=== PATIENT | male | born 1965 | race African-American/Black ===

== ENCOUNTER 2017-05-07 10:02 | Inpatient (IN) | payer OTHER ==
[2017-05-07 10:31] VITALS: BMI 27.1
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
[2017-05-07] MEDS ORDERED: hydrOXYzine PAMOATE 50 MG CAPSULE (FP) PO PRN (14:25)
[2017-05-07] MEDS ORDERED: IBUPROFEN 400 MG TABLET (FP) PO PRN (14:25)
[2017-05-07] MEDS ORDERED: ACETAMINOPHEN 325 MG TABLET (FP) PO PRN (14:25)
[2017-05-07] MEDS ORDERED: chlordiazePOXIDE HCL 25 MG CAPSULE PO PRN (14:25)
[2017-05-07] MEDS ORDERED: guaiFENesin/D-METHORPHAN HB 10 ML UNIT-DOSE CUPS PO PRN (14:25)
[2017-05-07] MEDS ORDERED: MAGNESIUM HYDROX 2400MG/30ML ORAL SUSPENSION 30 ML CUP PO PRN (14:25)
[2017-05-07] MEDS ORDERED: MAGNESIUM CITRATE 300 ML BOTTLE PO PRN (14:25)
[2017-05-07] MEDS ORDERED: P-EPHED 60MG/TRIPROLIDI 2.5MG TABLET PO PRN (14:25)
[2017-05-07] MEDS ORDERED: chlordiazePOXIDE HCL 25 MG CAPSULE PO ONE (15:00)
[2017-05-07 17:10] LABS: URINE APPEARANCE CLEAR; URINE BILIRUBIN NEGATIVE (NEGATIVE); URINE BLOOD NEGATIVE (NEGATIVE); URINE COLOR YELLOW; URINE GLUCOSE (UA) NEGATIVE (NEGATIVE); URINE KETONE NEGATIVE (NEGATIVE); URINE LEUK ESTERASE NEGATIVE (NEGATIVE); URINE NITRITE NEGATIVE (NEGATIVE); URINE PROTEIN NEGATIVE (NEGATIVE); URINE UROBILINOGEN NEGATIVE mg/dL (0.2-1.0)
[2017-05-07] MEDS: chlordiazePOXIDE HCL 25 MG CAPSULE PO SCH ×2 (17:20→22:12)
[2017-05-07] MEDS: THIAMINE HCL 100 MG TABLET (FP) PO SCH (22:12)
[2017-05-07] MEDS: BACITRACIN 0.9 GM PACKET TP SCH (22:12)
[2017-05-07] MEDS: diphenhydrAMINE HCL 50 MG CAPSULE PO PRN (22:13)
[2017-05-07] MEDS: MAG HYDROX/AL HYDROX/SIMETH 30 ML UNIT-DOSE CUP PO PRN (22:13)
[2017-05-08] MEDS: chlordiazePOXIDE HCL 25 MG CAPSULE PO SCH ×4 (05:08→22:16)
[2017-05-08] MEDS: LOPERAMIDE HCL 2 MG CAPSULE PO PRN ×2 (08:48→19:46)
[2017-05-08 09:37] LABS: HIV 1 & 2 AB NEGATIVE; HIV 1 AGp24 NEGATIVE
[2017-05-08 09:41] LABS: MCH 28.2 pg (25.7-33.7); MCHC 32.3 g/dl (32.0-35.9); MEAN CELL VOLUME 87.4 fl (80-96); MEAN PLT VOLUME 8.4 fl (7.5-11.1); PLATELET COUNT 233 K/MM3 (134-434); RDW 14.8 % (11.9-15.9); WHITE BLOOD COUNT 4.4 K/mm3 (4.0-10.0)
[2017-05-08 09:48] LABS: ALBUMIN 3.7 g/dl (3.4-5.0); ANION GAP 7 (8-16); BILIRUBIN,TOTAL 0.3 mg/dL (0.2-1.0); CALCIUM 8.3 mg/dL (8.5-10.1); CO2 27 mmol/L (21-32); CREATININE 0.8 mg/dL (0.7-1.3); GLUCOSE,RANDOM 107 mg/dL (74-106); SGOT/AST 19 U/L (15-37); SGPT/ALT 25 U/L (12-78); TOT PROT 7.7 g/dl (6.4-8.2)
[2017-05-08 09:49] LABS: ALK PHOS 97 U/L (45-117)
[2017-05-08] MEDS: BACITRACIN 0.9 GM PACKET TP SCH ×2 (10:28→22:15)
[2017-05-08] MEDS: PRENATAL VITAMINS W/ FOLIC ACID TABLET (FP) PO SCH (10:28)
--- NOTE | 2017-05-08 11:51 | PN ---
S CIWA - CIWA Score Nausea/Vomitin Muscle Tremors: 3 Anxiety: 3 Agitation: 2 Paroxysmal Sweats: 3 Orientation: 0-Oriented Tacttile Disturbances: 2-Mild Itch/Numbness/Burn Auditory Disturbances: 0-None Visual Disturbances: 0-None Headache: 0-None Present CIWA-Ar Total Score: 15 S Progress Note (SOAP) Subjective: sweats, shakes ,,cramps Objective: 05/08/17 11:49 Vital Signs Temperature 96.8 F L 05/08/17 10:24 Pulse Rate 69 05/08/17 10:24 Respiratory Rate 18 05/08/17 10:24 Blood Pressure 131/78 05/08/17 10:24 O2 Sat by Pulse Oximetry (%) Laboratory Tests 05/07/17 05/07/17 05/08/17 12:40 15:00 06:00 WBC 4.4 RBC 4.00 Hgb 11.3 L Hct 35.0 L MCV 87.4 MCH 28.2 MCHC 32.3 RDW 14.8 Plt Count 233 MPV 8.4 Sodium Potassium Chloride Carbon Dioxide Anion Gap BUN Creatinine Creat Clearance w eGFR Random Glucose Calcium Total Bilirubin AST ALT Alkaline Phosphatase Total Protein Albumin Urine Color Yellow Urine Appearance Clear Urine pH 5.0 D Ur Specific [place] 1.025 Urine Protein Negative Urine Glucose (UA) Negative Urine Ketones Negative Urine Blood Negative Urine Nitrite Negative Urine Bilirubin Negative Urine Urobilinogen Negative Ur Leukocyte Esterase Negative HIV 1&2 Antibody Screen Negative HIV P24 Antigen Negative 05/08/17 06:00 WBC RBC Hgb Hct MCV MCH MCHC RDW Plt Count MPV Sodium 141 Potassium 4.0 Chloride 107 Carbon Dioxide 27 Anion Gap 7 L BUN 20 H Creatinine 0.8 Creat Clearance w eGFR > 60 Random Glucose 107 H Calcium 8.3 L Total Bilirubin 0.3 D AST 19 D ALT 25 D Alkaline Phosphatase 97 Total Protein 7.7 Albumin 3.7 Urine Color Urine Appearance Urine pH Ur Specific [place] Urine Protein Urine Glucose (UA) Urine Ketones Urine Blood Urine Nitrite Urine Bilirubin Urine Urobilinogen Ur Leukocyte Esterase HIV 1&2 Antibody Screen HIV P24 Antigen pt aox3 in nad ambulating Assessment: 05/08/17 11:49 withdrawal sx's t.pedis cramps i toes 05/08/17 11:50 Plan: cont. detox increase fluids tinactin bid flexeril 10mg tid
--- NOTE | 2017-05-08 12:57 | EKG ---
Test Reason : Blood Pressure : / mmHG Vent. Rate : 054 BPM Atrial Rate : 054 BPM P-R Int : 132 ms QRS Dur : 110 ms QT Int : 460 ms P-R-T Axes : 075 072 039 degrees QTc Int : [address] ELEVATION, CONSIDER EARLY REPOLARIZATION OTHERWISE NORMAL ECG NO PREVIOUS ECGS AVAILABLE Confirmed by MD JACIEL, YVONNE ([id number]) on 05/08/2017 12:56:32 PM Referred By: Confirmed By:YVONNE GRISSOM MD
[2017-05-08] MEDS: THIAMINE HCL 100 MG TABLET (FP) PO SCH (22:15)
[2017-05-08] MEDS: diphenhydrAMINE HCL 50 MG CAPSULE PO PRN (22:16)
[2017-05-09] MEDS: chlordiazePOXIDE HCL 25 MG CAPSULE PO SCH ×2 (05:36→10:37)
[2017-05-09] MEDS: MENTHOL/PHENOL 1 EACH UD MM PRN (05:37)
[2017-05-09] MEDS ORDERED: CYCLOBENZAPRINE HCL 10 MG TABLET (FP) PO PRN (10:31)
[2017-05-09] MEDS: PRENATAL VITAMINS W/ FOLIC ACID TABLET (FP) PO SCH (10:34)
[2017-05-09] MEDS: BACITRACIN 0.9 GM PACKET TP SCH ×2 (10:35→22:37)
[2017-05-09] MEDS: AMMONIUM LACTATE 12% LOTION 225 GM BOTTLE TP SCH (13:04)
[2017-05-09] MEDS: TOLNAFTATE 1% CREAM 15 GM TUBE TP SCH ×2 (13:05→22:37)
--- NOTE | 2017-05-09 14:19 | PN ---
S CIWA - CIWA Score Nausea/Vomitin Muscle Tremors: None Anxiety: 4-Mod. Anxious/Guarded Agitation: 2 Paroxysmal Sweats: 3 Orientation: 0-Oriented Tacttile Disturbances: 0-None Auditory Disturbances: 2-Mild Harshness/Frighten Visual Disturbances: 3-Moderate Sensitivity Headache: 0-None Present CIWA-Ar Total Score: 16 S Progress Note (SOAP) Subjective: Interrupted sleep, Stomach Cramping, Body Aches, H/A, Diarrhea, Sweating. Objective: PT. A & O X 3. NO ACUTE DISTRESS. PT. DENIES CHEST PAIN. 05/09/17 14:17 Vital Signs Temperature 97.9 F 05/09/17 10:11 Pulse Rate 75 05/09/17 10:11 Respiratory Rate 18 05/09/17 10:11 Blood Pressure 137/73 05/09/17 10:11 O2 Sat by Pulse Oximetry (%) Laboratory Tests 05/07/17 05/07/17 05/08/17 12:40 15:00 06:00 WBC 4.4 RBC 4.00 Hgb 11.3 L Hct 35.0 L MCV 87.4 MCH 28.2 MCHC 32.3 RDW 14.8 Plt Count 233 MPV 8.4 Sodium Potassium Chloride Carbon Dioxide Anion Gap BUN Creatinine Creat Clearance w eGFR Random Glucose Calcium Total Bilirubin AST ALT Alkaline Phosphatase Total Protein Albumin Urine Color Yellow Urine Appearance Clear Urine pH 5.0 D Ur Specific [place] 1.025 Urine Protein Negative Urine Glucose (UA) Negative Urine Ketones Negative Urine Blood Negative Urine Nitrite Negative Urine Bilirubin Negative Urine Urobilinogen Negative Ur Leukocyte Esterase Negative RPR Titer HIV 1&2 Antibody Screen Negative HIV P24 Antigen Negative 05/08/17 05/08/17 06:00 06:00 WBC RBC Hgb Hct MCV MCH MCHC RDW Plt Count MPV Sodium 141 Potassium 4.0 Chloride 107 Carbon Dioxide 27 Anion Gap 7 L BUN 20 H Creatinine 0.8 Creat Clearance w eGFR > 60 Random Glucose 107 H Calcium 8.3 L Total Bilirubin 0.3 D AST 19 D ALT 25 D Alkaline Phosphatase 97 Total Protein 7.7 Albumin 3.7 Urine Color Urine Appearance Urine pH Ur Specific [place] Urine Protein Urine Glucose (UA) Urine Ketones Urine Blood Urine Nitrite Urine Bilirubin Urine Urobilinogen Ur Leukocyte Esterase RPR Titer Nonreactive HIV 1&2 Antibody Screen HIV P24 Antigen LABS NOTED. Assessment: 05/09/17 14:18 WITHDRAWAL SYMPTOMS. Plan: CONTINUE DETOX. INCREASE PO FLUID INTAKE. PRN FLEXERIL FOR BODY ACHES / MUSCLE SPASMS.
[2017-05-09] MEDS: chlordiazePOXIDE 5 MG CAPSULE PO SCH ×2 (17:23→22:37)
[2017-05-09] MEDS: THIAMINE HCL 100 MG TABLET (FP) PO SCH (22:37)
[2017-05-09] MEDS: MAG HYDROX/AL HYDROX/SIMETH 30 ML UNIT-DOSE CUP PO PRN (22:38)
[2017-05-10] MEDS: chlordiazePOXIDE 5 MG CAPSULE PO SCH ×2 (05:28→10:34)
[2017-05-10] MEDS: MENTHOL/PHENOL 1 EACH UD MM PRN (05:29)
[2017-05-10] MEDS: LOPERAMIDE HCL 2 MG CAPSULE PO PRN (05:29)
[2017-05-10] MEDS: TOLNAFTATE 1% CREAM 15 GM TUBE TP SCH ×2 (10:32→22:17)
[2017-05-10] MEDS: BACITRACIN 0.9 GM PACKET TP SCH ×2 (10:32→22:16)
[2017-05-10] MEDS: PRENATAL VITAMINS W/ FOLIC ACID TABLET (FP) PO SCH (10:33)
[2017-05-10] MEDS: AMMONIUM LACTATE 12% LOTION 225 GM BOTTLE TP SCH (10:34)
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
[2017-05-10] MEDS: chlordiazePOXIDE HCL 10 MG CAPSULE PO SCH ×2 (17:05→22:17)
[2017-05-10] MEDS: THIAMINE HCL 100 MG TABLET (FP) PO SCH (22:16)
[2017-05-10] MEDS: diphenhydrAMINE HCL 50 MG CAPSULE PO PRN (22:17)
[2017-05-11] MEDS: chlordiazePOXIDE HCL 10 MG CAPSULE PO SCH (06:04)
[2017-05-11 06:07] VITALS: BP 140/78; PULSE 78; TEMP 97
[2017-05-11] MEDS ORDERED: BACITRACIN 0.9 GM PACKET TP ONE (09:45)
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
== END 2017-05-11 09:32 | disposition home or self-care (01) | DRG 775 ==
LOC: YASAS 10:02 → Y3N 12:08
PROVIDERS: ADMIT Internal Medicine; ATTEND Internal Medicine
PROC: HZ2ZZZZ Detoxification Services for Substance Abuse Treatment (ICD-10-PCS; principal; 2017-05-07)
PROC: 8E09XY8 Suture Removal from Head and Neck Region (ICD-10-PCS; 2017-05-07)
DX: F13.230 Sedative, hypnotic or anxiolytic dependence with withdrawal, uncomplicated (principal); F10.230 Alcohol dependence with withdrawal, uncomplicated; F12.20 Cannabis dependence, uncomplicated; B35.3 Tinea pedis; R25.2 Cramp and spasm; Z87.898 Personal history of other specified conditions; Z93.0 Tracheostomy status
CPT/HCPCS: 36415; 80053; 81003; 85027; 86593; 87389; 93005; 93010

== ENCOUNTER 2018-04-09 10:22 | Inpatient (IN) | payer OTHER ==
[2018-04-09 10:53] VITALS: BMI 27.1
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
[2018-04-09] MEDS ORDERED: MENTHOL/PHENOL 1 EACH UD MM PRN (11:51)
[2018-04-09] MEDS ORDERED: ACETAMINOPHEN 325 MG TABLET (FP) PO PRN (11:51)
[2018-04-09] MEDS ORDERED: chlordiazePOXIDE HCL 25 MG CAPSULE PO PRN (11:51)
[2018-04-09] MEDS ORDERED: guaiFENesin/D-METHORPHAN HB 10 ML UNIT-DOSE CUPS PO PRN (11:51)
[2018-04-09] MEDS ORDERED: MAGNESIUM HYDROX 2400MG/30ML ORAL SUSPENSION 30 ML CUP PO PRN (11:51)
[2018-04-09] MEDS ORDERED: IBUPROFEN 400 MG TABLET (FP) PO PRN (11:51)
[2018-04-09] MEDS ORDERED: P-EPHED 60MG/TRIPROLIDI 2.5MG TABLET PO PRN (11:51)
[2018-04-09] MEDS ORDERED: MAGNESIUM CITRATE 300 ML BOTTLE PO PRN (11:51)
[2018-04-09] MEDS ORDERED: cloNIDine HCL 0.1 MG TABLET PO ONE (13:35)
[2018-04-09] MEDS: RANITIDINE HCL 150 MG TABLET (FP) PO SCH (13:37)
[2018-04-09] MEDS: chlordiazePOXIDE HCL 25 MG CAPSULE PO SCH ×2 (17:18→22:12)
[2018-04-09] MEDS: THIAMINE HCL 100 MG TABLET (FP) PO SCH (22:11)
[2018-04-09] MEDS: MELATONIN 5 MG TABLETS PO PRN (22:11)
[2018-04-10] MEDS: chlordiazePOXIDE HCL 25 MG CAPSULE PO SCH ×4 (05:54→22:30)
[2018-04-10] MEDS: MAG HYDROX/AL HYDROX/SIMETH 30 ML UNIT-DOSE CUP PO PRN (05:55)
[2018-04-10 10:14] LABS: HEMATOCRIT 36.8 % (35.4-49); HEMOGLOBIN 12.3 GM/dL (11.7-16.9); MCH 30.2 pg (25.7-33.7); MCHC 33.3 g/dl (32.0-35.9); MEAN CELL VOLUME 90.5 fl (80-96); MEAN PLT VOLUME 8.3 fl (7.5-11.1); PLATELET COUNT 249 K/MM3 (134-434); RBC 4.07 M/mm3 (4.00-5.60); RDW 15.3 % (11.9-15.9); WHITE BLOOD COUNT 4.5 K/mm3 (4.0-10.0)
[2018-04-10] MEDS: RANITIDINE HCL 150 MG TABLET (FP) PO SCH (10:34)
[2018-04-10] MEDS: PRENATAL VITAMINS W/ FOLIC ACID TABLET (FP) PO SCH (10:34)
[2018-04-10 10:43] LABS: URINE APPEARANCE TURBID; URINE BILIRUBIN NEGATIVE (<2.0 mg/dL); URINE COLOR AMBER; URINE GLUCOSE (UA) NEGATIVE (NEGATIVE); URINE KETONE NEGATIVE (NEGATIVE); URINE LEUK ESTERASE NEGATIVE (NEGATIVE); URINE NITRITE NEGATIVE (NEGATIVE); URINE PROTEIN NEGATIVE (NEGATIVE)
[2018-04-10 10:46] LABS: URINE BACTERIA RARE /hpf (NONE SEEN); URINE MUCUS FEW
[2018-04-10 10:50] LABS: ALK PHOS 92 U/L (45-117); CHLORIDE 107 mmol/L (98-107); POTASSIUM 3.8 mmol/L (3.5-5.1); SGPT/ALT 40 U/L (12-78); SODIUM 140 mmol/L (136-145)
[2018-04-10 10:55] LABS: ALBUMIN 4.2 g/dl (3.4-5.0); ANION GAP 7 (8-16); BILIRUBIN,TOTAL 1.2 mg/dL (0.2-1.0); BLOOD UREA NITROGEN 19 mg/dL (7-18); CALCIUM 8.9 mg/dL (8.5-10.1); CO2 26 mmol/L (21-32); GLUCOSE,RANDOM 124 mg/dL (74-106); SGOT/AST 40 U/L (15-37); TOT PROT 8.1 g/dl (6.4-8.2)
[2018-04-10] MEDS: LOPERAMIDE HCL 2 MG CAPSULE PO PRN (13:46)
[2018-04-10] MEDS ORDERED: CYCLOBENZAPRINE HCL 10 MG TABLET (FP) PO PRN (16:21)
--- NOTE | 2018-04-10 17:50 | PN ---
[facility] CIWA - CIWA Score Nausea/Vomitin-No Nausea/No Vomiting Muscle Tremors: 4-Moderate,w/Arms Extend Anxiety: 3 Agitation: 3 Paroxysmal Sweats: 3 Orientation: 0-Oriented Tacttile Disturbances: 2-Mild Itch/Numbness/Burn Auditory Disturbances: 2-Mild Harshness/Frighten Visual Disturbances: 0-None Headache: 0-None Present CIWA-Ar Total Score: 17 S Progress Note (SOAP) Subjective: Interrupted Sleep, Tremors, Diarrhea, Sweating, Body Aches. Objective: PATIENT A & O X 3, OBSERVED AMBULATING ON UNIT. NO ACUTE DISTRESS. 04/10/18 17:48 Vital Signs Temperature 96.7 F L 04/10/18 14:01 Pulse Rate 55 L 04/10/18 14:01 Respiratory Rate 18 04/10/18 14:01 Blood Pressure 151/79 04/10/18 14:01 O2 Sat by Pulse Oximetry (%) Laboratory Tests 04/09/18 04/10/18 04/10/18 12:00 05:30 05:30 WBC 4.5 RBC 4.07 Hgb 12.3 Hct 36.8 MCV 90.5 MCH 30.2 MCHC 33.3 RDW 15.3 Plt Count 249 MPV 8.3 Sodium 140 Potassium 3.8 Chloride 107 Carbon Dioxide 26 Anion Gap 7 L BUN 19 H Creatinine 1.0 Creat Clearance w eGFR > 60 Random Glucose 124 H Calcium 8.9 Total Bilirubin 1.2 H AST 40 H D ALT 40 D Alkaline Phosphatase 92 Total Protein 8.1 Albumin 4.2 Urine Color Urine Appearance Urine pH Ur Specific [place] Urine Protein Urine Glucose (UA) Urine Ketones Urine Blood Urine Nitrite Urine Bilirubin Urine Urobilinogen Ur Leukocyte Esterase Urine WBC (Auto) Urine RBC (Auto) Urine Bacteria Urine Mucus RPR Titer HIV 1&2 Antibody Screen Negative HIV P24 Antigen Negative 04/10/18 04/10/18 05:30 05:50 WBC RBC Hgb Hct MCV MCH MCHC RDW Plt Count MPV Sodium Potassium Chloride Carbon Dioxide Anion Gap BUN Creatinine Creat Clearance w eGFR Random Glucose Calcium Total Bilirubin AST ALT Alkaline Phosphatase Total Protein Albumin Urine Color [place] Urine Appearance Turbid Urine pH 5.0 Ur Specific [place] 1.023 Urine Protein Negative Urine Glucose (UA) Negative Urine Ketones Negative Urine Blood 1+ H Urine Nitrite Negative Urine Bilirubin Negative Urine Urobilinogen 2.0 Ur Leukocyte Esterase Negative Urine WBC (Auto) 2 Urine RBC (Auto) 4 Urine Bacteria Rare Urine Mucus Few RPR Titer Nonreactive HIV 1&2 Antibody Screen HIV P24 Antigen LABS NOTED. Assessment: 04/10/18 17:48 WITHDRAWAL SYMPTOMS. Plan: CONTINUE DETOX. INCREASE DAILY PO FLUID INTAKE. PRN FLEXERIL FOR BODY ACHES / MUSCLE SPASMS.
[2018-04-10] MEDS: THIAMINE HCL 100 MG TABLET (FP) PO SCH (22:30)
[2018-04-10] MEDS: hydrOXYzine PAMOATE 25 MG CAPSULE (FP) PO PRN (22:30)
[2018-04-10] MEDS: MELATONIN 5 MG TABLETS PO PRN (22:31)
[2018-04-11] MEDS: MAG HYDROX/AL HYDROX/SIMETH 30 ML UNIT-DOSE CUP PO PRN (05:22)
[2018-04-11] MEDS: chlordiazePOXIDE HCL 25 MG CAPSULE PO SCH ×2 (05:22→10:44)
[2018-04-11] MEDS: PRENATAL VITAMINS W/ FOLIC ACID TABLET (FP) PO SCH (10:43)
[2018-04-11] MEDS: RANITIDINE HCL 150 MG TABLET (FP) PO SCH (10:44)
[2018-04-11] MEDS: TETRAHYDROZOLINE HCL EYE DROPS OU PRN (10:44)
--- NOTE | 2018-04-11 15:37 | PN ---
[facility] CIWA - CIWA Score Nausea/Vomitin-Mild Nausea/No Vomiting Muscle Tremors: 1-None Visible, but [place] Anxiety: 1-Mildly Anxious Agitation: 1-Slight > Activity Paroxysmal Sweats: 1-Minimal Palms Moist Orientation: 0-Oriented Tacttile Disturbances: 0-None Auditory Disturbances: 0-None Visual Disturbances: 0-None Headache: 0-None Present CIWA-Ar Total Score: 5 S Progress Note (SOAP) Subjective: pt complaining of diarrhea- watery stool-able to take po, no fevers, no abd pain , no recent antibiotic use. d/w pt imodium prn that he can ask for- Objective: 04/11/18 15:35 Vital Signs - 24 hr 04/10/18 04/10/18 04/11/18 18:18 22:24 00:30 Temperature 98.0 F 98.4 F Pulse Rate 55 L 57 L Respiratory 16 18 18 Rate Blood Pressure 139/74 155/88 04/11/18 04/11/18 04/11/18 03:30 06:26 09:28 Temperature 97.4 F L 97 F L Pulse Rate 50 L 70 Respiratory 18 18 20 Rate Blood Pressure 134/70 138/82 04/11/18 13:33 Temperature 98.6 F Pulse Rate 68 Respiratory 18 Rate Blood Pressure 140/83 Breath Alcohol Content Breath Alcohol Content 0 Laboratory Tests 04/09/18 04/10/18 04/10/18 12:00 05:30 05:30 WBC 4.5 RBC 4.07 Hgb 12.3 Hct 36.8 MCV 90.5 MCH 30.2 MCHC 33.3 RDW 15.3 Plt Count 249 MPV 8.3 Sodium 140 Potassium 3.8 Chloride 107 Carbon Dioxide 26 Anion Gap 7 L BUN 19 H Creatinine 1.0 Creat Clearance w eGFR > 60 Random Glucose 124 H Calcium 8.9 Total Bilirubin 1.2 H AST 40 H D ALT 40 D Alkaline Phosphatase 92 Total Protein 8.1 Albumin 4.2 Urine Color Urine Appearance Urine pH Ur Specific [place] Urine Protein Urine Glucose (UA) Urine Ketones Urine Blood Urine Nitrite Urine Bilirubin Urine Urobilinogen Ur Leukocyte Esterase Urine WBC (Auto) Urine RBC (Auto) Urine Bacteria Urine Mucus RPR Titer HIV 1&2 Antibody Screen Negative HIV P24 Antigen Negative 04/10/18 04/10/18 05:30 05:50 WBC RBC Hgb Hct MCV MCH MCHC RDW Plt Count MPV Sodium Potassium Chloride Carbon Dioxide Anion Gap BUN Creatinine Creat Clearance w eGFR Random Glucose Calcium Total Bilirubin AST ALT Alkaline Phosphatase Total Protein Albumin Urine Color [place] Urine Appearance Turbid Urine pH 5.0 Ur Specific [place] 1.023 Urine Protein Negative Urine Glucose (UA) Negative Urine Ketones Negative Urine Blood 1+ H Urine Nitrite Negative Urine Bilirubin Negative Urine Urobilinogen 2.0 Ur Leukocyte Esterase Negative Urine WBC (Auto) 2 Urine RBC (Auto) 4 Urine Bacteria Rare Urine Mucus Few RPR Titer Nonreactive HIV 1&2 Antibody Screen HIV P24 Antigen nl VS increased liver enzymes soft, NT abd, pt walking around Assessment: 04/11/18 15:36 here for detox form alcohol,xanax Plan: continue detox prn imodium
[2018-04-11] MEDS: chlordiazePOXIDE 5 MG CAPSULE PO SCH ×2 (17:22→22:24)
[2018-04-11] MEDS: LOPERAMIDE HCL 2 MG CAPSULE PO PRN (17:51)
[2018-04-11] MEDS: THIAMINE HCL 100 MG TABLET (FP) PO SCH (22:24)
[2018-04-11] MEDS: hydrOXYzine PAMOATE 25 MG CAPSULE (FP) PO PRN (22:24)
[2018-04-12] MEDS: LOPERAMIDE HCL 2 MG CAPSULE PO PRN (01:52)
[2018-04-12] MEDS: chlordiazePOXIDE 5 MG CAPSULE PO SCH ×2 (05:52→10:35)
[2018-04-12] MEDS: PRENATAL VITAMINS W/ FOLIC ACID TABLET (FP) PO SCH (10:44)
[2018-04-12] MEDS: RANITIDINE HCL 150 MG TABLET (FP) PO SCH (10:44)
[2018-04-12] MEDS: TETRAHYDROZOLINE HCL EYE DROPS OU PRN (10:47)
--- NOTE | 2018-04-12 11:11 | EKG ---
Test Reason : Blood Pressure : / mmHG Vent. Rate : 051 BPM Atrial Rate : 051 BPM P-R Int : 138 ms QRS Dur : 108 ms QT Int : 458 ms P-R-T Axes : 070 070 042 degrees QTc Int : 422 ms SINUS BRADYCARDIA POSSIBLE LEFT ATRIAL ENLARGEMENT LEFT VENTRICULAR HYPERTROPHY ABNORMAL ECG WHEN COMPARED WITH ECG OF 07-MAY-2017 13:51, NO SIGNIFICANT CHANGE WAS FOUND Confirmed by SCOTT SHORT MD ([id number]) on 04/12/2018 11:10:26 AM Referred By: Confirmed By:SCOTT SHORT MD
--- NOTE | 2018-04-12 12:20 | PN ---
[facility] Progress Note (SOAP) Subjective: Sweating, Diarrhea, Stomach Cramping, Body Aches, Fatigue, Tremors. Objective: PATIENT A & O X 3. NO ACUTE DISTRESS. 04/12/18 12:18 Vital Signs Temperature 97.9 F 04/12/18 09:44 Pulse Rate 63 04/12/18 09:44 Respiratory Rate 18 04/12/18 09:44 Blood Pressure 141/79 04/12/18 09:44 O2 Sat by Pulse Oximetry (%) Laboratory Tests 04/09/18 04/10/18 04/10/18 12:00 05:30 05:30 WBC 4.5 RBC 4.07 Hgb 12.3 Hct 36.8 MCV 90.5 MCH 30.2 MCHC 33.3 RDW 15.3 Plt Count 249 MPV 8.3 Sodium 140 Potassium 3.8 Chloride 107 Carbon Dioxide 26 Anion Gap 7 L BUN 19 H Creatinine 1.0 Creat Clearance w eGFR > 60 Random Glucose 124 H Calcium 8.9 Total Bilirubin 1.2 H AST 40 H D ALT 40 D Alkaline Phosphatase 92 Total Protein 8.1 Albumin 4.2 Urine Color Urine Appearance Urine pH Ur Specific [place] Urine Protein Urine Glucose (UA) Urine Ketones Urine Blood Urine Nitrite Urine Bilirubin Urine Urobilinogen Ur Leukocyte Esterase Urine WBC (Auto) Urine RBC (Auto) Urine Bacteria Urine Mucus RPR Titer HIV 1&2 Antibody Screen Negative HIV P24 Antigen Negative 04/10/18 04/10/18 05:30 05:50 WBC RBC Hgb Hct MCV MCH MCHC RDW Plt Count MPV Sodium Potassium Chloride Carbon Dioxide Anion Gap BUN Creatinine Creat Clearance w eGFR Random Glucose Calcium Total Bilirubin AST ALT Alkaline Phosphatase Total Protein Albumin Urine Color [place] Urine Appearance Turbid Urine pH 5.0 Ur Specific [place] 1.023 Urine Protein Negative Urine Glucose (UA) Negative Urine Ketones Negative Urine Blood 1+ H Urine Nitrite Negative Urine Bilirubin Negative Urine Urobilinogen 2.0 Ur Leukocyte Esterase Negative Urine WBC (Auto) 2 Urine RBC (Auto) 4 Urine Bacteria Rare Urine Mucus Few RPR Titer Nonreactive HIV 1&2 Antibody Screen HIV P24 Antigen LABS NOTED. Assessment: 04/12/18 12:18 WITHDRAWAL SYMPTOMS. Plan: CONTINUE DETOX. INCREASE DAILY PO FLUID INTAKE. PRN IMMODIUM FOR DIARRHEA. PATIENT SCHEDULED FOR D/C TOMORROW.
[2018-04-12] MEDS: chlordiazePOXIDE HCL 10 MG CAPSULE PO SCH ×2 (17:59→22:01)
[2018-04-12] MEDS: THIAMINE HCL 100 MG TABLET (FP) PO SCH (22:01)
[2018-04-13 06:15] VITALS: BP 141/77; PULSE 51; TEMP 97.9
[2018-04-13] MEDS: chlordiazePOXIDE HCL 10 MG CAPSULE PO SCH (06:36)
== END 2018-04-13 09:15 | disposition home or self-care (01) | DRG 775 ==
LOC: YASAS 10:22 → Y3N 11:50
PROVIDERS: ADMIT Surgery; ATTEND Surgery
PROC: HZ2ZZZZ Detoxification Services for Substance Abuse Treatment (ICD-10-PCS; principal; 2018-04-09)
DX: F10.230 Alcohol dependence with withdrawal, uncomplicated (principal); F13.230 Sedative, hypnotic or anxiolytic dependence with withdrawal, uncomplicated; K21.9 Gastro-esophageal reflux disease without esophagitis; R19.7 Diarrhea, unspecified
CPT/HCPCS: 36415; 80053; 81003; 81015; 85027; 86593; 87389; 93005; 93010; J0735

== ENCOUNTER 2018-06-25 12:14 | Inpatient (IN) | payer OTHER ==
[2018-06-25 12:58] VITALS: BMI 26.6
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
[2018-06-25] MEDS ORDERED: hydrOXYzine PAMOATE 50 MG CAPSULE (FP) PO PRN (15:02)
[2018-06-25] MEDS ORDERED: MAG HYDROX/AL HYDROX/SIMETH 30 ML UNIT-DOSE CUP PO PRN (15:02)
[2018-06-25] MEDS ORDERED: MAGNESIUM CITRATE 300 ML BOTTLE PO PRN (15:02)
[2018-06-25] MEDS ORDERED: chlordiazePOXIDE HCL 25 MG CAPSULE PO PRN (15:02)
[2018-06-25] MEDS ORDERED: MAGNESIUM HYDROX 2400MG/30ML ORAL SUSPENSION 30 ML CUP PO PRN (15:02)
[2018-06-25] MEDS ORDERED: ACETAMINOPHEN 325 MG TABLET (FP) PO PRN (15:02)
[2018-06-25] MEDS: guaiFENesin/D-METHORPHAN HB 10 ML UNIT-DOSE CUPS PO PRN (15:55)
[2018-06-25] MEDS: chlordiazePOXIDE HCL 25 MG CAPSULE PO SCH ×2 (17:09→22:10)
[2018-06-25] MEDS: MENTHOL/PHENOL 1 EACH UD MM PRN ×2 (17:11→22:11)
[2018-06-25 18:11] LABS: URINE APPEARANCE CLEAR; URINE BILIRUBIN NEGATIVE (<2.0 mg/dL); URINE COLOR YELLOW; URINE GLUCOSE (UA) NEGATIVE (NEGATIVE); URINE KETONE NEGATIVE (NEGATIVE); URINE LEUK ESTERASE NEGATIVE (NEGATIVE); URINE NITRITE NEGATIVE (NEGATIVE); URINE PROTEIN 1+ (NEGATIVE)
[2018-06-25 18:30] LABS: EPI CELLS RARE /HPF (FEW); URINE HYALINE CAST 3 /lpf; URINE MUCUS MODERATE
[2018-06-25] MEDS: P-EPHED 60MG/TRIPROLIDI 2.5MG TABLET PO PRN (18:44)
[2018-06-25] MEDS ORDERED: MELATONIN 5 MG TABLETS PO PRN (22:00)
[2018-06-25] MEDS: THIAMINE HCL 100 MG TABLET (FP) PO SCH (22:10)
[2018-06-25] MEDS: LOPERAMIDE HCL 2 MG CAPSULE PO PRN (22:31)
[2018-06-26] MEDS: chlordiazePOXIDE HCL 25 MG CAPSULE PO SCH ×4 (05:37→22:09)
[2018-06-26] MEDS: P-EPHED 60MG/TRIPROLIDI 2.5MG TABLET PO PRN (05:38)
[2018-06-26] MEDS: LOPERAMIDE HCL 2 MG CAPSULE PO PRN (05:40)
[2018-06-26] MEDS: MENTHOL/PHENOL 1 EACH UD MM PRN (05:41)
[2018-06-26] MEDS: PRENATAL VITAMINS W/ FOLIC ACID TABLET (FP) PO SCH (10:23)
[2018-06-26] MEDS: guaiFENesin/D-METHORPHAN HB 10 ML UNIT-DOSE CUPS PO PRN ×2 (10:25→22:10)
[2018-06-26] MEDS: IBUPROFEN 400 MG TABLET (FP) PO PRN ×2 (10:53→17:48)
[2018-06-26 11:16] LABS: ALBUMIN 3.6 g/dl (3.4-5.0); ALK PHOS 99 U/L (45-117); ANION GAP 9 MMOL/L (8-16); BILIRUBIN,TOTAL 1.8 mg/dL (0.2-1); BLOOD UREA NITROGEN 7 mg/dL (7-18); CALCIUM 8.9 mg/dL (8.5-10.1); CHLORIDE 102 mmol/L (98-107); CO2 26 mmol/L (21-32); CREATININE 0.9 mg/dL (0.55-1.3); GLUCOSE,RANDOM 84 mg/dL (74-106); POTASSIUM 3.6 mmol/L (3.5-5.1); SGOT/AST 44 U/L (15-37); SGPT/ALT 32 U/L (13-61); SODIUM 138 mmol/L (136-145); TOT PROT 7.7 g/dl (6.4-8.2)
[2018-06-26 11:19] LABS: HEMATOCRIT 38.2 % (35.4-49); HEMOGLOBIN 12.7 GM/dL (11.7-16.9); MCH 29.6 pg (25.7-33.7); MCHC 33.3 g/dl (32.0-35.9); MEAN CELL VOLUME 88.9 fl (80-96); MEAN PLT VOLUME 8.8 fl (7.5-11.1); PLATELET COUNT 188 K/MM3 (134-434); RBC 4.29 M/mm3 (4.00-5.60); RDW 14.6 % (11.9-15.9)
[2018-06-26] MEDS: ARTIFICIAL TEARS (POLYVINYL ALCOHOL) OPTH DROPS OU SCH ×2 (15:40→22:07)
--- NOTE | 2018-06-26 16:28 | PN ---
S CIWA - CIWA Score Nausea/Vomitin Muscle Tremors: 3 Anxiety: 2 Agitation: 2 Paroxysmal Sweats: 1-Minimal Palms Moist Orientation: 0-Oriented Tacttile Disturbances: 1-Very Mild Itch/Numbness Auditory Disturbances: 1-Very Mild Visual Disturbances: 1-Very Mild Sensitivity Headache: 2-Mild CIWA-Ar Total Score: 15 S Progress Note (SOAP) Subjective: alert,irritable,anxious,interrupted sleep,tremor Objective: 06/26/18 16:26 Vital Signs Temperature 97.8 F 06/26/18 15:38 Pulse Rate 65 06/26/18 15:38 Respiratory Rate 18 06/26/18 15:38 Blood Pressure 127/74 06/26/18 15:38 O2 Sat by Pulse Oximetry (%) 06/26/18 16:26 Laboratory Last Values WBC 4.0 K/mm3 (4.0-10.0) 06/26/18 08:00 RBC 4.29 M/mm3 (4.00-5.60) 06/26/18 08:00 Hgb 12.7 GM/dL (11.7-16.9) 06/26/18 08:00 Hct 38.2 % (35.4-49) 06/26/18 08:00 MCV 88.9 fl (80-96) 06/26/18 08:00 MCH 29.6 pg (25.7-33.7) 06/26/18 08:00 MCHC 33.3 g/dl (32.0-35.9) 06/26/18 08:00 RDW 14.6 % (11.9-15.9) 06/26/18 08:00 Plt Count 188 K/MM3 (134-434) D 06/26/18 08:00 MPV 8.8 fl (7.5-11.1) 06/26/18 08:00 Sodium 138 mmol/L (136-145) 06/26/18 08:00 Potassium 3.6 mmol/L (3.5-5.1) 06/26/18 08:00 Chloride 102 mmol/L (98-107) 06/26/18 08:00 Carbon Dioxide 26 mmol/L (21-32) 06/26/18 08:00 Anion Gap 9 MMOL/L (8-16) 06/26/18 08:00 BUN 7 mg/dL (7-18) 06/26/18 08:00 Creatinine 0.9 mg/dL (0.55-1.3) 06/26/18 08:00 Creat Clearance w eGFR > 60 (>60) 06/26/18 08:00 Random Glucose 84 mg/dL (74-106) 06/26/18 08:00 Calcium 8.9 mg/dL (8.5-10.1) 06/26/18 08:00 Total Bilirubin 1.8 mg/dL (0.2-1) H 06/26/18 08:00 AST 44 U/L (15-37) H 06/26/18 08:00 ALT 32 U/L (13-61) 06/26/18 08:00 Alkaline Phosphatase 99 U/L (45-117) 06/26/18 08:00 Total Protein 7.7 g/dl (6.4-8.2) 06/26/18 08:00 Albumin 3.6 g/dl (3.4-5.0) 06/26/18 08:00 Urine Color Yellow 06/25/18 17:00 Urine Appearance Clear 06/25/18 17:00 Urine pH 7.0 (5.0-8.0) D 06/25/18 17:00 Ur Specific [place] 1.019 (1.010-1.035) 06/25/18 17:00 Urine Protein 1+ (NEGATIVE) H 06/25/18 17:00 Urine Glucose (UA) Negative (NEGATIVE) 06/25/18 17:00 Urine Ketones Negative (NEGATIVE) 06/25/18 17:00 Urine Blood 1+ (NEGATIVE) H 06/25/18 17:00 Urine Nitrite Negative (NEGATIVE) 06/25/18 17:00 Urine Bilirubin Negative (<2.0 mg/dL) 06/25/18 17:00 Urine Urobilinogen 2.0 mg/dL (0.2-1.0) 06/25/18 17:00 Ur Leukocyte Esterase Negative (NEGATIVE) 06/25/18 17:00 Urine WBC (Auto) 1 /hpf (3-5) 06/25/18 17:00 Urine RBC (Auto) 2 /hpf (0-3) 06/25/18 17:00 Ur Epithelial Cells Rare /HPF (FEW) 06/25/18 17:00 Hyaline Casts 3 /lpf 06/25/18 17:00 Urine Mucus Moderate 06/25/18 17:00 RPR Titer Nonreactive (NONREACTIVE) 06/26/18 08:00 HIV 1&2 Antibody Screen Negative 06/26/18 08:00 HIV P24 Antigen Negative 06/26/18 08:00 Assessment: 06/26/18 16:27 withdrawal symptom Plan: continue detox
[2018-06-26] MEDS: THIAMINE HCL 100 MG TABLET (FP) PO SCH (22:06)
[2018-06-27] MEDS: chlordiazePOXIDE HCL 25 MG CAPSULE PO SCH ×2 (05:48→10:09)
[2018-06-27] MEDS: ARTIFICIAL TEARS (POLYVINYL ALCOHOL) OPTH DROPS OU SCH ×3 (05:48→22:41)
[2018-06-27] MEDS: MENTHOL/PHENOL 1 EACH UD MM PRN ×3 (05:49→22:44)
[2018-06-27] MEDS: LOPERAMIDE HCL 2 MG CAPSULE PO PRN (05:50)
[2018-06-27] MEDS: P-EPHED 60MG/TRIPROLIDI 2.5MG TABLET PO PRN ×2 (05:51→18:01)
[2018-06-27] MEDS: PRENATAL VITAMINS W/ FOLIC ACID TABLET (FP) PO SCH (10:08)
[2018-06-27] MEDS: IBUPROFEN 400 MG TABLET (FP) PO PRN (10:10)
--- NOTE | 2018-06-27 16:51 | PN ---
[facility] CIWA - CIWA Score Nausea/Vomitin Muscle Tremors: 3 Anxiety: 3 Agitation: 3 Paroxysmal Sweats: 3 Orientation: 0-Oriented Tacttile Disturbances: 1-Very Mild Itch/Numbness Auditory Disturbances: 0-None Visual Disturbances: 0-None Headache: 1-Very Mild CIWA-Ar Total Score: 16 [facility] Progress Note (SOAP) Subjective: Stomach cramp, sweating, interrupted sleep Objective: 06/27/18 16:49 Last Vital Signs Temp Pulse Resp BP Pulse Ox 96.6 F L 70 20 134/82 06/27/18 14:05 06/27/18 14:05 06/27/18 14:05 06/27/18 14:05 Laboratory Tests 06/25/18 06/26/18 06/26/18 17:00 08:00 08:00 WBC 4.0 RBC 4.29 Hgb 12.7 Hct 38.2 MCV 88.9 MCH 29.6 MCHC 33.3 RDW 14.6 Plt Count 188 D MPV 8.8 Sodium Potassium Chloride Carbon Dioxide Anion Gap BUN Creatinine Creat Clearance w eGFR Random Glucose Calcium Total Bilirubin AST ALT Alkaline Phosphatase Total Protein Albumin Urine Color Yellow Urine Appearance Clear Urine pH 7.0 D Ur Specific [place] 1.019 Urine Protein 1+ H Urine Glucose (UA) Negative Urine Ketones Negative Urine Blood 1+ H Urine Nitrite Negative Urine Bilirubin Negative Urine Urobilinogen 2.0 Ur Leukocyte Esterase Negative Urine WBC (Auto) 1 Urine RBC (Auto) 2 Ur Epithelial Cells Rare Hyaline Casts 3 Urine Mucus Moderate RPR Titer HIV 1&2 Antibody Screen Negative HIV P24 Antigen Negative 06/26/18 06/26/18 08:00 08:00 WBC RBC Hgb Hct MCV MCH MCHC RDW Plt Count MPV Sodium 138 Potassium 3.6 Chloride 102 Carbon Dioxide 26 Anion Gap 9 BUN 7 Creatinine 0.9 Creat Clearance w eGFR > 60 Random Glucose 84 Calcium 8.9 Total Bilirubin 1.8 H AST 44 H ALT 32 Alkaline Phosphatase 99 Total Protein 7.7 Albumin 3.6 Urine Color Urine Appearance Urine pH Ur Specific [place] Urine Protein Urine Glucose (UA) Urine Ketones Urine Blood Urine Nitrite Urine Bilirubin Urine Urobilinogen Ur Leukocyte Esterase Urine WBC (Auto) Urine RBC (Auto) Ur Epithelial Cells Hyaline Casts Urine Mucus RPR Titer Nonreactive HIV 1&2 Antibody Screen HIV P24 Antigen Labs reviewed: abnormal UA Assessment: 06/27/18 16:50 Withdrawal sxs Noted with abnormal UA Plan: Continue detox Abnormal UA: encouraged PO water intake, repeat UA
[2018-06-27] MEDS: chlordiazePOXIDE 5 MG CAPSULE PO SCH ×2 (18:01→22:42)
[2018-06-27] MEDS: guaiFENesin/D-METHORPHAN HB 10 ML UNIT-DOSE CUPS PO PRN (18:02)
[2018-06-27] MEDS: THIAMINE HCL 100 MG TABLET (FP) PO SCH (22:41)
[2018-06-28] MEDS: chlordiazePOXIDE 5 MG CAPSULE PO SCH ×2 (05:39→10:36)
[2018-06-28] MEDS: MENTHOL/PHENOL 1 EACH UD MM PRN ×3 (05:39→19:36)
[2018-06-28] MEDS: P-EPHED 60MG/TRIPROLIDI 2.5MG TABLET PO PRN (05:43)
[2018-06-28] MEDS: ARTIFICIAL TEARS (POLYVINYL ALCOHOL) OPTH DROPS OU SCH ×3 (06:23→22:41)
[2018-06-28 10:24] LABS: URINE APPEARANCE CLEAR; URINE BILIRUBIN NEGATIVE (<2.0 mg/dL); URINE COLOR STRAW; URINE GLUCOSE (UA) NEGATIVE (NEGATIVE); URINE KETONE NEGATIVE (NEGATIVE); URINE LEUK ESTERASE NEGATIVE (NEGATIVE); URINE NITRITE NEGATIVE (NEGATIVE); URINE PROTEIN NEGATIVE (NEGATIVE); URINE UROBILINOGEN NEGATIVE mg/dL (0.2-1.0)
[2018-06-28] MEDS: LOPERAMIDE HCL 2 MG CAPSULE PO PRN ×2 (10:36→17:35)
[2018-06-28] MEDS: PRENATAL VITAMINS W/ FOLIC ACID TABLET (FP) PO SCH (10:36)
--- NOTE | 2018-06-28 13:01 | PN ---
[facility] Progress Note (SOAP) Subjective: Interrupted sleep, diarrhea Objective: 06/28/18 12:54 Last Vital Signs Temp Pulse Resp BP Pulse Ox 97.3 F L 63 18 139/80 06/28/18 09:28 06/28/18 09:28 06/28/18 09:28 06/28/18 09:28 Laboratory Tests 06/25/18 06/26/18 06/26/18 17:00 08:00 08:00 WBC 4.0 RBC 4.29 Hgb 12.7 Hct 38.2 MCV 88.9 MCH 29.6 MCHC 33.3 RDW 14.6 Plt Count 188 D MPV 8.8 Sodium Potassium Chloride Carbon Dioxide Anion Gap BUN Creatinine Creat Clearance w eGFR Random Glucose Calcium Total Bilirubin AST ALT Alkaline Phosphatase Total Protein Albumin Urine Color Yellow Urine Appearance Clear Urine pH 7.0 D Ur Specific [place] 1.019 Urine Protein 1+ H Urine Glucose (UA) Negative Urine Ketones Negative Urine Blood 1+ H Urine Nitrite Negative Urine Bilirubin Negative Urine Urobilinogen 2.0 Ur Leukocyte Esterase Negative Urine WBC (Auto) 1 Urine RBC (Auto) 2 Ur Epithelial Cells Rare Hyaline Casts 3 Urine Mucus Moderate RPR Titer HIV 1&2 Antibody Screen Negative HIV P24 Antigen Negative 06/26/18 06/26/18 06/28/18 08:00 08:00 06:17 WBC RBC Hgb Hct MCV MCH MCHC RDW Plt Count MPV Sodium 138 Potassium 3.6 Chloride 102 Carbon Dioxide 26 Anion Gap 9 BUN 7 Creatinine 0.9 Creat Clearance w eGFR > 60 Random Glucose 84 Calcium 8.9 Total Bilirubin 1.8 H AST 44 H ALT 32 Alkaline Phosphatase 99 Total Protein 7.7 Albumin 3.6 Urine Color Straw Urine Appearance Clear Urine pH 5.0 D Ur Specific [place] 1.009 L Urine Protein Negative Urine Glucose (UA) Negative Urine Ketones Negative Urine Blood Negative Urine Nitrite Negative Urine Bilirubin Negative Urine Urobilinogen Negative Ur Leukocyte Esterase Negative Urine WBC (Auto) Urine RBC (Auto) Ur Epithelial Cells Hyaline Casts Urine Mucus RPR Titer Nonreactive HIV 1&2 Antibody Screen HIV P24 Antigen Labs reviewed: total bilirubin 1.8 Assessment: 06/28/18 12:57 Withdrawal sxs Noted with Elevated total bilirubin Plan: Continue detox Elevated total bilirubin: follow up on repeated serum total bilirubin (pending result)
[2018-06-28] MEDS: chlordiazePOXIDE HCL 10 MG CAPSULE PO SCH ×2 (17:33→22:40)
[2018-06-28] MEDS: guaiFENesin/D-METHORPHAN HB 10 ML UNIT-DOSE CUPS PO PRN ×2 (19:36→22:41)
[2018-06-28] MEDS: THIAMINE HCL 100 MG TABLET (FP) PO SCH (22:40)
[2018-06-29] MEDS: chlordiazePOXIDE HCL 10 MG CAPSULE PO SCH (05:19)
[2018-06-29] MEDS: LOPERAMIDE HCL 2 MG CAPSULE PO PRN (05:21)
[2018-06-29] MEDS: ARTIFICIAL TEARS (POLYVINYL ALCOHOL) OPTH DROPS OU SCH (05:22)
[2018-06-29] MEDS: MENTHOL/PHENOL 1 EACH UD MM PRN (05:23)
[2018-06-29] MEDS: P-EPHED 60MG/TRIPROLIDI 2.5MG TABLET PO PRN (05:23)
[2018-06-29 06:35] VITALS: BP 140/79; PULSE 51; TEMP 97.7
--- NOTE | 2018-06-29 10:57 | DS ---
[facility] Detox Discharge Summary Admission Date: 06/25/18 Discharge Date: 06/29/18 - History Present History: Alcohol Dependence, Cannabis Dependence, Sedative Dependence Pertinent Past History: Denies - Physical Exam Results Vital Signs: Vital Signs Temperature 97.7 F 06/29/18 06:34 Pulse Rate 51 L 06/29/18 06:34 Respiratory Rate 18 06/29/18 06:34 Blood Pressure 140/79 06/29/18 06:34 O2 Sat by Pulse Oximetry (%) Pertinent Admission Physical Exam Findings: Withdrawal symptoms Laboratory Tests 06/25/18 06/26/18 06/26/18 17:00 08:00 08:00 WBC 4.0 RBC 4.29 Hgb 12.7 Hct 38.2 MCV 88.9 MCH 29.6 MCHC 33.3 RDW 14.6 Plt Count 188 D MPV 8.8 Sodium Potassium Chloride Carbon Dioxide Anion Gap BUN Creatinine Creat Clearance w eGFR Random Glucose Calcium Total Bilirubin AST ALT Alkaline Phosphatase Total Protein Albumin Urine Color Yellow Urine Appearance Clear Urine pH 7.0 D Ur Specific [place] 1.019 Urine Protein 1+ H Urine Glucose (UA) Negative Urine Ketones Negative Urine Blood 1+ H Urine Nitrite Negative Urine Bilirubin Negative Urine Urobilinogen 2.0 Ur Leukocyte Esterase Negative Urine WBC (Auto) 1 Urine RBC (Auto) 2 Ur Epithelial Cells Rare Hyaline Casts 3 Urine Mucus Moderate RPR Titer HIV 1&2 Antibody Screen Negative HIV P24 Antigen Negative 06/26/18 06/26/18 06/28/18 08:00 08:00 06:17 WBC RBC Hgb Hct MCV MCH MCHC RDW Plt Count MPV Sodium 138 Potassium 3.6 Chloride 102 Carbon Dioxide 26 Anion Gap 9 BUN 7 Creatinine 0.9 Creat Clearance w eGFR > 60 Random Glucose 84 Calcium 8.9 Total Bilirubin 1.8 H AST 44 H ALT 32 Alkaline Phosphatase 99 Total Protein 7.7 Albumin 3.6 Urine Color Straw Urine Appearance Clear Urine pH 5.0 D Ur Specific [place] 1.009 L Urine Protein Negative Urine Glucose (UA) Negative Urine Ketones Negative Urine Blood Negative Urine Nitrite Negative Urine Bilirubin Negative Urine Urobilinogen Negative Ur Leukocyte Esterase Negative Urine WBC (Auto) Urine RBC (Auto) Ur Epithelial Cells Hyaline Casts Urine Mucus RPR Titer Nonreactive HIV 1&2 Antibody Screen HIV P24 Antigen 06/28/18 09:10 WBC RBC Hgb Hct MCV MCH MCHC RDW Plt Count MPV Sodium Potassium Chloride Carbon Dioxide Anion Gap BUN Creatinine Creat Clearance w eGFR Random Glucose Calcium Total Bilirubin 0.8 AST ALT Alkaline Phosphatase Total Protein Albumin Urine Color Urine Appearance Urine pH Ur Specific [place] Urine Protein Urine Glucose (UA) Urine Ketones Urine Blood Urine Nitrite Urine Bilirubin Urine Urobilinogen Ur Leukocyte Esterase Urine WBC (Auto) Urine RBC (Auto) Ur Epithelial Cells Hyaline Casts Urine Mucus RPR Titer HIV 1&2 Antibody Screen HIV P24 Antigen Labs reviewed - Treatment Hospital Course: Detox Protocol Followed, Detoxed Safely, Responded well, Discharged Condition Good - Medication Discharge Medications: Ambulatory Orders NK [No Known Home Medication] 08/22/14 - Diagnosis (1) Serum total bilirubin elevated Status: Resolved (2) Alcohol dependence with uncomplicated withdrawal Status: Acute (3) Cannabis dependence, uncomplicated Status: Chronic (4) Uncomplicated sedative, hypnotic or anxiolytic withdrawal Status: Acute - AMA Did Patient Leave Against Medical Advice: No (F/U with your PCP within 1 week)
== END 2018-06-29 10:10 | disposition home or self-care (01) | DRG 775 ==
LOC: YASAS 12:14 → Y3N 14:59
PROC: HZ2ZZZZ Detoxification Services for Substance Abuse Treatment (ICD-10-PCS; principal; 2018-06-25)
DX: F10.230 Alcohol dependence with withdrawal, uncomplicated (principal); F13.230 Sedative, hypnotic or anxiolytic dependence with withdrawal, uncomplicated; F12.20 Cannabis dependence, uncomplicated; E80.7 Disorder of bilirubin metabolism, unspecified; R82.90 Unspecified abnormal findings in urine; Z87.898 Personal history of other specified conditions
CPT/HCPCS: 36415; 80053; 81003; 81015; 82247; 85027; 86593; 87389

== ENCOUNTER 2018-11-07 10:01 | Inpatient (IN) | payer OTHER ==
[2018-11-07 10:16] VITALS: BMI 27.1
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
[2018-11-07] MEDS ORDERED: MAGNESIUM HYDROX 2400MG/30ML ORAL SUSPENSION 30 ML CUP PO PRN (11:09)
[2018-11-07] MEDS ORDERED: MAGNESIUM CITRATE 300 ML BOTTLE PO PRN (11:09)
[2018-11-07] MEDS ORDERED: chlordiazePOXIDE HCL 25 MG CAPSULE PO ONE (11:09)
[2018-11-07] MEDS ORDERED: ACETAMINOPHEN 325 MG TABLET (FP) PO PRN (11:09)
[2018-11-07] MEDS ORDERED: IBUPROFEN 400 MG TABLET (FP) PO PRN (11:09)
[2018-11-07] MEDS ORDERED: LOPERAMIDE HCL 2 MG CAPSULE PO PRN (11:09)
[2018-11-07] MEDS ORDERED: chlordiazePOXIDE HCL 25 MG CAPSULE PO PRN (11:09)
[2018-11-07] MEDS ORDERED: P-EPHED 60MG/TRIPROLIDI 2.5MG TABLET PO PRN (11:09)
[2018-11-07] MEDS ORDERED: MENTHOL/PHENOL 1 EACH UD MM PRN (11:09)
[2018-11-07] MEDS ORDERED: guaiFENesin/D-METHORPHAN HB 10 ML UNIT-DOSE CUPS PO PRN (11:09)
[2018-11-07 15:09] LABS: URINE APPEARANCE CLEAR; URINE BILIRUBIN NEGATIVE (<2.0 mg/dL); URINE COLOR YELLOW; URINE GLUCOSE (UA) NEGATIVE (NEGATIVE); URINE KETONE 2+ (NEGATIVE); URINE LEUK ESTERASE NEGATIVE (NEGATIVE); URINE NITRITE NEGATIVE (NEGATIVE); URINE PROTEIN 1+ (NEGATIVE); URINE UROBILINOGEN NEGATIVE mg/dL (0.2-1.0)
[2018-11-07 15:12] LABS: EPI CELLS RARE /HPF (FEW); URINE MUCUS RARE
[2018-11-07] MEDS: chlordiazePOXIDE HCL 25 MG CAPSULE PO SCH ×2 (17:19→22:21)
[2018-11-07] MEDS: MAG HYDROX/AL HYDROX/SIMETH 30 ML UNIT-DOSE CUP PO PRN ×2 (17:19→23:15)
[2018-11-07] MEDS: THIAMINE HCL 100 MG TABLET (FP) PO SCH (22:21)
[2018-11-07] MEDS: MELATONIN 5 MG TABLETS PO PRN (22:23)
[2018-11-08] MEDS: chlordiazePOXIDE HCL 25 MG CAPSULE PO SCH ×4 (05:11→22:33)
--- NOTE | 2018-11-08 09:30 | PN ---
[facility] CIWA - CIWA Score Nausea/Vomitin-Mild Nausea/No Vomiting Muscle Tremors: 2 Anxiety: 3 Agitation: 3 Paroxysmal Sweats: No Perspiration Orientation: 1-Uncertain about Date Tacttile Disturbances: 0-None Auditory Disturbances: 0-None Visual Disturbances: 0-None Headache: 1-Very Mild CIWA-Ar Total Score: 11 S Progress Note (SOAP) Subjective: nausea acid reflux loose stool anxiety restlessness trouble sleep at night tremor Objective: 11/08/18 09:28 Vital Signs Temperature 97.7 F 11/08/18 06:26 Pulse Rate 59 L 11/08/18 06:26 Respiratory Rate 18 11/08/18 06:26 Blood Pressure 139/78 11/08/18 06:26 O2 Sat by Pulse Oximetry (%) Laboratory Last Values Urine Color Yellow 11/07/18 14:12 Urine Appearance Clear 11/07/18 14:12 Urine pH 5.0 (5.0-8.0) 11/07/18 14:12 Ur Specific [place] 1.029 (1.010-1.035) 11/07/18 14:12 Urine Protein 1+ (NEGATIVE) H 11/07/18 14:12 Urine Glucose (UA) Negative (NEGATIVE) 11/07/18 14:12 Urine Ketones 2+ (NEGATIVE) H 11/07/18 14:12 Urine Blood 2+ (NEGATIVE) H 11/07/18 14:12 Urine Nitrite Negative (NEGATIVE) 11/07/18 14:12 Urine Bilirubin Negative (<2.0 mg/dL) 11/07/18 14:12 Urine Urobilinogen Negative mg/dL (0.2-1.0) 11/07/18 14:12 Ur Leukocyte Esterase Negative (NEGATIVE) 11/07/18 14:12 Urine WBC (Auto) 1 /hpf (3-5) 11/07/18 14:12 Urine RBC (Auto) 3 /hpf (0-3) 11/07/18 14:12 Ur Epithelial Cells Rare /HPF (FEW) 11/07/18 14:12 Urine Mucus Rare 11/07/18 14:12 lab noted Assessment: 11/08/18 09:29 alcohol and benzo withdrawal sx 11/08/18 09:30 acid reflux mild diarrhea gassy fungal feet Plan: continue detox gas x zantac discontinue motrin clotrimazole to feet
[2018-11-08 10:06] LABS: HEMATOCRIT 40.3 % (35.4-49); HEMOGLOBIN 13.6 GM/dL (11.7-16.9); MCH 30.2 pg (25.7-33.7); MCHC 33.7 g/dl (32.0-35.9); MEAN CELL VOLUME 89.6 fl (80-96); MEAN PLT VOLUME 8.4 fl (7.5-11.1); PLATELET COUNT 212 K/MM3 (134-434); WHITE BLOOD COUNT 3.4 K/mm3 (4.0-10.0)
[2018-11-08] MEDS: PRENATAL VITAMINS W/ FOLIC ACID TABLET (FP) PO SCH (10:23)
[2018-11-08] MEDS: RANITIDINE HCL 150 MG TABLET (FP) PO SCH ×2 (10:25→22:33)
[2018-11-08 10:44] LABS: ALBUMIN 4.4 g/dl (3.4-5.0); ALK PHOS 94 U/L (45-117); ANION GAP 9 MMOL/L (8-16); BILIRUBIN,TOTAL 2.1 mg/dL (0.2-1); BLOOD UREA NITROGEN 13 mg/dL (7-18); CALCIUM 9.7 mg/dL (8.5-10.1); CHLORIDE 101 mmol/L (98-107); CO2 25 mmol/L (21-32); GLUCOSE,RANDOM 108 mg/dL (74-106); POTASSIUM 3.8 mmol/L (3.5-5.1); SGOT/AST 96 U/L (15-37); SGPT/ALT 89 U/L (13-61); SODIUM 135 mmol/L (136-145); TOT PROT 8.6 g/dl (6.4-8.2)
[2018-11-08] MEDS: SIMETHICONE 80 MG TAB.CHEW (FP) PO SCH ×4 (13:14→22:33)
[2018-11-08] MEDS: CLOTRIMAZOLE 1% CREAM 15 GM TUBE TP SCH ×2 (13:17→22:32)
[2018-11-08] MEDS: ARTIFICIAL TEARS (POLYVINYL ALCOHOL) OPTH DROPS OU SCH ×2 (17:35→22:32)
[2018-11-08] MEDS: THIAMINE HCL 100 MG TABLET (FP) PO SCH (22:33)
[2018-11-08] MEDS: MELATONIN 5 MG TABLETS PO PRN (22:33)
[2018-11-09] MEDS: chlordiazePOXIDE HCL 25 MG CAPSULE PO SCH ×2 (05:22→10:29)
[2018-11-09] MEDS: MAG HYDROX/AL HYDROX/SIMETH 30 ML UNIT-DOSE CUP PO PRN (05:22)
[2018-11-09] MEDS: ARTIFICIAL TEARS (POLYVINYL ALCOHOL) OPTH DROPS OU SCH ×4 (10:27→22:27)
[2018-11-09] MEDS: SIMETHICONE 80 MG TAB.CHEW (FP) PO SCH ×4 (10:28→23:06)
[2018-11-09] MEDS: RANITIDINE HCL 150 MG TABLET (FP) PO SCH ×2 (10:28→22:27)
[2018-11-09] MEDS: PRENATAL VITAMINS W/ FOLIC ACID TABLET (FP) PO SCH (10:28)
[2018-11-09] MEDS: CLOTRIMAZOLE 1% CREAM 15 GM TUBE TP SCH ×2 (10:28→22:27)
--- NOTE | 2018-11-09 11:37 | PN ---
S CIWA - CIWA Score Nausea/Vomitin-Mild Nausea/No Vomiting Muscle Tremors: 2 Anxiety: 2 Agitation: 2 Paroxysmal Sweats: 1-Minimal Palms Moist Orientation: 0-Oriented Tacttile Disturbances: 0-None Auditory Disturbances: 0-None Visual Disturbances: 0-None Headache: 1-Very Mild CIWA-Ar Total Score: 9 BHS Progress Note (SOAP) Subjective: tremor indigestion sweating anxiety Objective: 11/09/18 11:36 Vital Signs Temperature 97.4 F L 11/09/18 09:58 Pulse Rate 77 11/09/18 09:58 Respiratory Rate 20 11/09/18 09:58 Blood Pressure 135/81 11/09/18 09:58 O2 Sat by Pulse Oximetry (%) Laboratory Last Values WBC 3.4 K/mm3 (4.0-10.0) L 11/08/18 07:40 RBC 4.50 M/mm3 (4.00-5.60) 11/08/18 07:40 Hgb 13.6 GM/dL (11.7-16.9) 11/08/18 07:40 Hct 40.3 % (35.4-49) 11/08/18 07:40 MCV 89.6 fl (80-96) 11/08/18 07:40 MCH 30.2 pg (25.7-33.7) 11/08/18 07:40 MCHC 33.7 g/dl (32.0-35.9) 11/08/18 07:40 RDW 15.0 % (11.9-15.9) 11/08/18 07:40 Plt Count 212 K/MM3 (134-434) 11/08/18 07:40 MPV 8.4 fl (7.5-11.1) 11/08/18 07:40 Sodium 135 mmol/L (136-145) L 11/08/18 07:40 Potassium 3.8 mmol/L (3.5-5.1) 11/08/18 07:40 Chloride 101 mmol/L (98-107) 11/08/18 07:40 Carbon Dioxide 25 mmol/L (21-32) 11/08/18 07:40 Anion Gap 9 MMOL/L (8-16) 11/08/18 07:40 BUN 13 mg/dL (7-18) 11/08/18 07:40 Creatinine 1.0 mg/dL (0.55-1.3) 11/08/18 07:40 Creat Clearance w eGFR > 60 (>60) 11/08/18 07:40 Random Glucose 108 mg/dL (74-106) H 11/08/18 07:40 Calcium 9.7 mg/dL (8.5-10.1) 11/08/18 07:40 Total Bilirubin 2.1 mg/dL (0.2-1) H 11/08/18 07:40 AST 96 U/L (15-37) H 11/08/18 07:40 ALT 89 U/L (13-61) H 11/08/18 07:40 Alkaline Phosphatase 94 U/L (45-117) 11/08/18 07:40 Total Protein 8.6 g/dl (6.4-8.2) H 11/08/18 07:40 Albumin 4.4 g/dl (3.4-5.0) 11/08/18 07:40 Urine Color Yellow 11/07/18 14:12 Urine Appearance Clear 11/07/18 14:12 Urine pH 5.0 (5.0-8.0) 11/07/18 14:12 Ur Specific [place] 1.029 (1.010-1.035) 11/07/18 14:12 Urine Protein 1+ (NEGATIVE) H 11/07/18 14:12 Urine Glucose (UA) Negative (NEGATIVE) 11/07/18 14:12 Urine Ketones 2+ (NEGATIVE) H 11/07/18 14:12 Urine Blood 2+ (NEGATIVE) H 11/07/18 14:12 Urine Nitrite Negative (NEGATIVE) 11/07/18 14:12 Urine Bilirubin Negative (<2.0 mg/dL) 11/07/18 14:12 Urine Urobilinogen Negative mg/dL (0.2-1.0) 11/07/18 14:12 Ur Leukocyte Esterase Negative (NEGATIVE) 11/07/18 14:12 Urine WBC (Auto) 1 /hpf (3-5) 11/07/18 14:12 Urine RBC (Auto) 3 /hpf (0-3) 11/07/18 14:12 Ur Epithelial Cells Rare /HPF (FEW) 11/07/18 14:12 Urine Mucus Rare 11/07/18 14:12 RPR Titer Nonreactive (NONREACTIVE) 11/08/18 07:40 HIV 1&2 Antibody Screen Negative 11/08/18 07:40 HIV P24 Antigen Negative 11/08/18 07:40 lab noted Assessment: 11/09/18 11:36 alcohol and benzo withdrawal sx Plan: continue detox
[2018-11-09] MEDS: chlordiazePOXIDE 5 MG CAPSULE PO SCH ×2 (17:45→22:27)
[2018-11-09] MEDS: THIAMINE HCL 100 MG TABLET (FP) PO SCH (22:27)
[2018-11-10] MEDS: chlordiazePOXIDE 5 MG CAPSULE PO SCH ×2 (05:33→10:21)
[2018-11-10] MEDS: RANITIDINE HCL 150 MG TABLET (FP) PO SCH ×2 (10:21→22:11)
[2018-11-10] MEDS: PRENATAL VITAMINS W/ FOLIC ACID TABLET (FP) PO SCH (10:21)
[2018-11-10] MEDS: CLOTRIMAZOLE 1% CREAM 15 GM TUBE TP SCH ×2 (10:22→22:11)
[2018-11-10] MEDS: ARTIFICIAL TEARS (POLYVINYL ALCOHOL) OPTH DROPS OU SCH ×4 (10:23→22:10)
--- NOTE | 2018-11-10 10:44 | PN ---
S CIWA - CIWA Score Nausea/Vomitin-No Nausea/No Vomiting Muscle Tremors: 1-None Visible, but [place] Anxiety: 1-Mildly Anxious Agitation: 1-Slight > Activity Paroxysmal Sweats: 1-Minimal Palms Moist Orientation: 0-Oriented Tacttile Disturbances: 0-None Auditory Disturbances: 0-None Visual Disturbances: 0-None Headache: 0-None Present CIWA-Ar Total Score: 4 BHS Progress Note (SOAP) Subjective: feeling better less anxiety mild tremor little sweating able to social with peers in day room Objective: 11/10/18 10:44 Vital Signs Temperature 98 F 11/10/18 09:17 Pulse Rate 78 11/10/18 09:17 Respiratory Rate 20 11/10/18 09:17 Blood Pressure 126/77 11/10/18 09:17 O2 Sat by Pulse Oximetry (%) Laboratory Last Values WBC 3.4 K/mm3 (4.0-10.0) L 11/08/18 07:40 RBC 4.50 M/mm3 (4.00-5.60) 11/08/18 07:40 Hgb 13.6 GM/dL (11.7-16.9) 11/08/18 07:40 Hct 40.3 % (35.4-49) 11/08/18 07:40 MCV 89.6 fl (80-96) 11/08/18 07:40 MCH 30.2 pg (25.7-33.7) 11/08/18 07:40 MCHC 33.7 g/dl (32.0-35.9) 11/08/18 07:40 RDW 15.0 % (11.9-15.9) 11/08/18 07:40 Plt Count 212 K/MM3 (134-434) 11/08/18 07:40 MPV 8.4 fl (7.5-11.1) 11/08/18 07:40 Sodium 135 mmol/L (136-145) L 11/08/18 07:40 Potassium 3.8 mmol/L (3.5-5.1) 11/08/18 07:40 Chloride 101 mmol/L (98-107) 11/08/18 07:40 Carbon Dioxide 25 mmol/L (21-32) 11/08/18 07:40 Anion Gap 9 MMOL/L (8-16) 11/08/18 07:40 BUN 13 mg/dL (7-18) 11/08/18 07:40 Creatinine 1.0 mg/dL (0.55-1.3) 11/08/18 07:40 Creat Clearance w eGFR > 60 (>60) 11/08/18 07:40 Random Glucose 108 mg/dL (74-106) H 11/08/18 07:40 Calcium 9.7 mg/dL (8.5-10.1) 11/08/18 07:40 Total Bilirubin 2.1 mg/dL (0.2-1) H 11/08/18 07:40 AST 96 U/L (15-37) H 11/08/18 07:40 ALT 89 U/L (13-61) H 11/08/18 07:40 Alkaline Phosphatase 94 U/L (45-117) 11/08/18 07:40 Total Protein 8.6 g/dl (6.4-8.2) H 11/08/18 07:40 Albumin 4.4 g/dl (3.4-5.0) 11/08/18 07:40 Urine Color Yellow 11/07/18 14:12 Urine Appearance Clear 11/07/18 14:12 Urine pH 5.0 (5.0-8.0) 11/07/18 14:12 Ur Specific [place] 1.029 (1.010-1.035) 11/07/18 14:12 Urine Protein 1+ (NEGATIVE) H 11/07/18 14:12 Urine Glucose (UA) Negative (NEGATIVE) 11/07/18 14:12 Urine Ketones 2+ (NEGATIVE) H 11/07/18 14:12 Urine Blood 2+ (NEGATIVE) H 11/07/18 14:12 Urine Nitrite Negative (NEGATIVE) 11/07/18 14:12 Urine Bilirubin Negative (<2.0 mg/dL) 11/07/18 14:12 Urine Urobilinogen Negative mg/dL (0.2-1.0) 11/07/18 14:12 Ur Leukocyte Esterase Negative (NEGATIVE) 11/07/18 14:12 Urine WBC (Auto) 1 /hpf (3-5) 11/07/18 14:12 Urine RBC (Auto) 3 /hpf (0-3) 11/07/18 14:12 Ur Epithelial Cells Rare /HPF (FEW) 11/07/18 14:12 Urine Mucus Rare 11/07/18 14:12 RPR Titer Nonreactive (NONREACTIVE) 11/08/18 07:40 HIV 1&2 Antibody Screen Negative 11/08/18 07:40 HIV P24 Antigen Negative 11/08/18 07:40 lab noted Assessment: 11/10/18 10:45 mild alcohol and benzo withdrawal sx Plan: continue detox
[2018-11-10] MEDS: chlordiazePOXIDE HCL 10 MG CAPSULE PO SCH ×2 (17:35→22:11)
[2018-11-10] MEDS: THIAMINE HCL 100 MG TABLET (FP) PO SCH (22:12)
[2018-11-11] MEDS: chlordiazePOXIDE HCL 10 MG CAPSULE PO SCH (07:36)
[2018-11-11 09:15] VITALS: BP 132/86; PULSE 78; TEMP 96.7
--- NOTE | 2018-11-11 10:36 | DS ---
[facility] Detox Discharge Summary Admission Date: 11/07/18 Discharge Date: 11/11/18 - History Present History: Alcohol Dependence, Sedative Dependence Additional Comments: 53 years old male admitted on 11/07/18 for alcohol and benzo withdrawal stabilization completed detox regimen aftercare [facility] patient was doing well throughout the detox hospitalization acknowledge his chronic elevated liver enzyme as well as alcohol related liver insults Pertinent Past History: keep medication list in wallet bring-in medication and bottles of medication to aftercare appointment update medication list when change of medication - Physical Exam Results Vital Signs: Vital Signs Temperature 96.7 F L 11/11/18 09:00 Pulse Rate 78 11/11/18 09:00 Respiratory Rate 18 11/11/18 09:00 Blood Pressure 132/86 11/11/18 09:00 O2 Sat by Pulse Oximetry (%) Pertinent Admission Physical Exam Findings: alcohol and benzo withdrawal sx Laboratory Last Values WBC 3.4 K/mm3 (4.0-10.0) L 11/08/18 07:40 RBC 4.50 M/mm3 (4.00-5.60) 11/08/18 07:40 Hgb 13.6 GM/dL (11.7-16.9) 11/08/18 07:40 Hct 40.3 % (35.4-49) 11/08/18 07:40 MCV 89.6 fl (80-96) 11/08/18 07:40 MCH 30.2 pg (25.7-33.7) 11/08/18 07:40 MCHC 33.7 g/dl (32.0-35.9) 11/08/18 07:40 RDW 15.0 % (11.9-15.9) 11/08/18 07:40 Plt Count 212 K/MM3 (134-434) 11/08/18 07:40 MPV 8.4 fl (7.5-11.1) 11/08/18 07:40 Sodium 135 mmol/L (136-145) L 11/08/18 07:40 Potassium 3.8 mmol/L (3.5-5.1) 11/08/18 07:40 Chloride 101 mmol/L (98-107) 11/08/18 07:40 Carbon Dioxide 25 mmol/L (21-32) 11/08/18 07:40 Anion Gap 9 MMOL/L (8-16) 11/08/18 07:40 BUN 13 mg/dL (7-18) 11/08/18 07:40 Creatinine 1.0 mg/dL (0.55-1.3) 11/08/18 07:40 Creat Clearance w eGFR > 60 (>60) 11/08/18 07:40 Random Glucose 108 mg/dL (74-106) H 11/08/18 07:40 Calcium 9.7 mg/dL (8.5-10.1) 11/08/18 07:40 Total Bilirubin 2.1 mg/dL (0.2-1) H 11/08/18 07:40 AST 96 U/L (15-37) H 11/08/18 07:40 ALT 89 U/L (13-61) H 11/08/18 07:40 Alkaline Phosphatase 94 U/L (45-117) 11/08/18 07:40 Total Protein 8.6 g/dl (6.4-8.2) H 11/08/18 07:40 Albumin 4.4 g/dl (3.4-5.0) 11/08/18 07:40 Urine Color Yellow 11/07/18 14:12 Urine Appearance Clear 11/07/18 14:12 Urine pH 5.0 (5.0-8.0) 11/07/18 14:12 Ur Specific [place] 1.029 (1.010-1.035) 11/07/18 14:12 Urine Protein 1+ (NEGATIVE) H 11/07/18 14:12 Urine Glucose (UA) Negative (NEGATIVE) 11/07/18 14:12 Urine Ketones 2+ (NEGATIVE) H 11/07/18 14:12 Urine Blood 2+ (NEGATIVE) H 11/07/18 14:12 Urine Nitrite Negative (NEGATIVE) 11/07/18 14:12 Urine Bilirubin Negative (<2.0 mg/dL) 11/07/18 14:12 Urine Urobilinogen Negative mg/dL (0.2-1.0) 11/07/18 14:12 Ur Leukocyte Esterase Negative (NEGATIVE) 11/07/18 14:12 Urine WBC (Auto) 1 /hpf (3-5) 11/07/18 14:12 Urine RBC (Auto) 3 /hpf (0-3) 11/07/18 14:12 Ur Epithelial Cells Rare /HPF (FEW) 11/07/18 14:12 Urine Mucus Rare 11/07/18 14:12 RPR Titer Nonreactive (NONREACTIVE) 11/08/18 07:40 HIV 1&2 Antibody Screen Negative 11/08/18 07:40 HIV P24 Antigen Negative 11/08/18 07:40 lab noted patient agrees to follow up with his primary care provider for his liver enzyme serum level - Treatment Hospital Course: Detox Protocol Followed, Detoxed Safely, Responded well, Discharged Condition Good, Rehab Referral Accepted Patient has Accepted a Rehab Referral to: [facility] - Medication Discharge Medications: Ambulatory Orders NK [No Known Home Medication] 11/07/18 - Diagnosis (1) Alcohol dependence with uncomplicated withdrawal Current Visit: Yes Status: Acute (2) Uncomplicated sedative, hypnotic or anxiolytic withdrawal Current Visit: Yes Status: Acute (3) Drug-induced mood disorder Current Visit: Yes Status: Suspected - AMA Did Patient Leave Against Medical Advice: No
== END 2018-11-11 09:08 | disposition home or self-care (01) | DRG 775 ==
LOC: YASAS 10:01 → Y3N 10:39
PROVIDERS: ADMIT Surgery; ATTEND Surgery
PROC: HZ2ZZZZ Detoxification Services for Substance Abuse Treatment (ICD-10-PCS; principal; 2018-11-07)
DX: F10.230 Alcohol dependence with withdrawal, uncomplicated (principal); F13.230 Sedative, hypnotic or anxiolytic dependence with withdrawal, uncomplicated; F19.24 Other psychoactive substance dependence with psychoactive substance-induced mood disorder; K21.9 Gastro-esophageal reflux disease without esophagitis; R19.7 Diarrhea, unspecified; B35.3 Tinea pedis
CPT/HCPCS: 36415; 80053; 81003; 81015; 85027; 86593; 87389

== ENCOUNTER 2019-02-24 09:46 | Inpatient (IN) | payer OTHER ==
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
[2019-02-24] MEDS ORDERED: MAGNESIUM HYDROX 2400MG/30ML ORAL SUSPENSION 30 ML CUP PO PRN (12:13)
[2019-02-24] MEDS ORDERED: hydrOXYzine PAMOATE 25 MG CAPSULE (FP) PO PRN (12:13)
[2019-02-24] MEDS ORDERED: BISMUTH SUBSALICYLATE 262 MG/15 ML BTL PO PRN (12:13)
[2019-02-24] MEDS ORDERED: chlordiazePOXIDE HCL 25 MG CAPSULE PO PRN (12:13)
[2019-02-24] MEDS ORDERED: MAGNESIUM CITRATE 300 ML BOTTLE PO PRN (12:13)
[2019-02-24] MEDS ORDERED: IBUPROFEN 400 MG TABLET (FP) PO PRN (12:13)
[2019-02-24] MEDS ORDERED: METHOCARBAMOL 500 MG TABLET PO PRN (12:13)
[2019-02-24] MEDS ORDERED: ACETAMINOPHEN 325 MG TABLET (FP) PO PRN ×2 (12:13)
[2019-02-24] MEDS ORDERED: MENTHOL/PHENOL 1 EACH UD MM PRN (12:13)
[2019-02-24] MEDS ORDERED: MAG HYDROX/AL HYDROX/SIMETH 30 ML UNIT-DOSE CUP PO PRN (12:13)
[2019-02-24] MEDS: AMMONIUM LACTATE 12% LOTION 225 GM BOTTLE TP SCH ×2 (13:08→22:45)
[2019-02-24] MEDS: chlordiazePOXIDE HCL 25 MG CAPSULE PO SCH ×2 (17:25→22:45)
[2019-02-24 21:37] LABS: URINE COLOR YELLOW
[2019-02-24 21:38] LABS: URINE APPEARANCE CLEAR
[2019-02-24 21:41] LABS: URINE BILIRUBIN NEGATIVE (NEGATIVE); URINE GLUCOSE (UA) NEGATIVE (NEGATIVE); URINE KETONE TRACE (NEGATIVE)
[2019-02-24 21:42] LABS: PH,URINE 7.5 (5.0-8.0); URINE NITRITE NEGATIVE (NEGATIVE); URINE PROTEIN NEGATIVE (NEGATIVE)
[2019-02-24 21:43] LABS: URINE LEUK ESTERASE NEGATIVE (NEGATIVE)
[2019-02-24] MEDS: THIAMINE HCL 100 MG TABLET (FP) PO SCH (22:52)
[2019-02-25] MEDS: chlordiazePOXIDE HCL 25 MG CAPSULE PO SCH ×4 (05:37→22:06)
[2019-02-25 10:00] LABS: HEMATOCRIT 34.7 % (35.4-49); HEMOGLOBIN 11.5 GM/dL (11.7-16.9); MCH 29.7 pg (25.7-33.7); MEAN PLT VOLUME 8.6 fl (7.5-11.1); PLATELET COUNT 161 K/MM3 (134-434); RBC 3.86 M/mm3 (4.00-5.60); RDW 14.4 % (11.9-15.9); WHITE BLOOD COUNT 2.8 K/mm3 (4.0-10.0)
[2019-02-25 10:13] LABS: ALBUMIN 3.6 g/dl (3.4-5.0); BILIRUBIN,TOTAL 1.1 mg/dL (0.2-1); BLOOD UREA NITROGEN 9.4 mg/dL (7-18); CALCIUM 8.4 mg/dL (8.5-10.1); CREATININE 0.9 mg/dL (0.55-1.3); POTASSIUM 3.5 mmol/L (3.5-5.1); TOT PROT 7.3 g/dl (6.4-8.2)
[2019-02-25] MEDS: PRENATAL VITAMINS W/ FOLIC ACID TABLET (FP) PO SCH (10:20)
[2019-02-25] MEDS: AMMONIUM LACTATE 12% LOTION 225 GM BOTTLE TP SCH ×2 (10:20→22:08)
[2019-02-25] MEDS ORDERED: ONDANSETRON *ODT* 4 MG TABLET SL PRN (13:44)
--- NOTE | 2019-02-25 15:22 | PN ---
S CIWA - CIWA Score Nausea/Vomitin Muscle Tremors: 2 Anxiety: 3 Agitation: 1-Slight > Activity Paroxysmal Sweats: 3 Orientation: 0-Oriented Tacttile Disturbances: 2-Mild Itch/Numbness/Burn Auditory Disturbances: 1-Very Mild Visual Disturbances: 0-None Headache: 0-None Present CIWA-Ar Total Score: 17 BHS Progress Note (SOAP) Subjective: Tremors, Vomiting, Diarrhea. Objective: PATIENT A & O X 3, OBSERVED AMBULATING ON UNIT UNASSISTED. IN NO ACUTE DISTRESS. 02/25/19 15:18 Vital Signs Temperature 96.9 F L 02/25/19 14:07 Pulse Rate 76 02/25/19 14:07 Respiratory Rate 18 02/25/19 14:07 Blood Pressure 145/80 02/25/19 14:07 O2 Sat by Pulse Oximetry (%) Laboratory Tests 02/24/19 02/25/19 02/25/19 13:00 07:00 07:00 WBC 2.8 L RBC 3.86 L Hgb 11.5 L Hct 34.7 L MCV 90.0 MCH 29.7 MCHC 33.0 RDW 14.4 Plt Count 161 D MPV 8.6 Sodium Potassium Chloride Carbon Dioxide Anion Gap BUN Creatinine Est GFR (CKD-EPI)AfAm Est GFR (CKD-EPI)NonAf Random Glucose Calcium Total Bilirubin AST ALT Alkaline Phosphatase Total Protein Albumin Urine Color Yellow Urine Appearance Clear Urine pH 7.5 D Ur Specific [place] 1.057 H Urine Protein Negative Urine Glucose (UA) Negative Urine Ketones Trace H Urine Blood Negative Urine Nitrite Negative Urine Bilirubin Negative Urine Urobilinogen 1.0 Ur Leukocyte Esterase Negative RPR Titer HIV 1&2 Antibody Screen Negative HIV P24 Antigen Negative 02/25/19 02/25/19 07:00 07:00 WBC RBC Hgb Hct MCV MCH MCHC RDW Plt Count MPV Sodium 139 Potassium 3.5 Chloride 104 Carbon Dioxide 28 Anion Gap 6 L BUN 9.4 Creatinine 0.9 Est GFR (CKD-EPI)AfAm 114.21 Est GFR (CKD-EPI)NonAf 98.54 Random Glucose 95 Calcium 8.4 L Total Bilirubin 1.1 H AST 60 H ALT 49 Alkaline Phosphatase 79 Total Protein 7.3 Albumin 3.6 Urine Color Urine Appearance Urine pH Ur Specific [place] Urine Protein Urine Glucose (UA) Urine Ketones Urine Blood Urine Nitrite Urine Bilirubin Urine Urobilinogen Ur Leukocyte Esterase RPR Titer Nonreactive HIV 1&2 Antibody Screen HIV P24 Antigen LABS NOTED. PATIENT HAS HAD LOW WBC LEVELS ON PREVIOUS ADMISSIONS. 02/25/19 15:20 Assessment: 02/25/19 15:19 WITHDRAWAL SYMPTOMS. ELEVATED AST LEVEL. ANEMIA. LEUKOPENIA. 02/25/19 15:20 Plan: CONTINUE DETOX. INCREASE DAILY PO FLUID / WATER INTAKE. PATIENT REPORTS POOR EFFECT FROM PRN PEPTO-BISMOL PO FOR DIARRHEA; CHANGE TO PRN IMODIUM PO. PRN ZOFRAN SL FOR NAUSEA/VOMITING. PATIENT IS CURRENTLY RECEIVING DAILY MVI CONTAINING B VITAMINS AND IRON WHILE ADMITTED FOR DETOX.
[2019-02-25] MEDS: LOPERAMIDE HCL 2 MG CAPSULE PO PRN (17:36)
[2019-02-25] MEDS: MELATONIN 5 MG TABLETS PO PRN (22:06)
[2019-02-25] MEDS: THIAMINE HCL 100 MG TABLET (FP) PO SCH (22:06)
[2019-02-26] MEDS: chlordiazePOXIDE HCL 25 MG CAPSULE PO SCH ×2 (05:39→10:24)
[2019-02-26] MEDS: PRENATAL VITAMINS W/ FOLIC ACID TABLET (FP) PO SCH (10:24)
[2019-02-26] MEDS: LOPERAMIDE HCL 2 MG CAPSULE PO PRN ×2 (10:25→21:56)
[2019-02-26] MEDS: AMMONIUM LACTATE 12% LOTION 225 GM BOTTLE TP SCH ×2 (11:28→22:46)
--- NOTE | 2019-02-26 12:37 | PN ---
S CIWA - CIWA Score Nausea/Vomitin-No Nausea/No Vomiting Muscle Tremors: 2 Anxiety: 2 Agitation: 2 Paroxysmal Sweats: 2 Orientation: 0-Oriented Tacttile Disturbances: 0-None Auditory Disturbances: 0-None Visual Disturbances: 0-None Headache: 2-Mild CIWA-Ar Total Score: 10 S Progress Note (SOAP) Subjective: c/o interrupted sleep, headache, shakes, and anxiety. Objective: 02/26/19 12:36 Vital Signs 02/26/19 02/26/19 06:21 09:40 Temperature 97.4 F L 97.6 F Pulse Rate 56 L 73 Respiratory 18 18 Rate Blood Pressure 139/74 136/84 Lab Results WBC 2.8 K/mm3 (4.0-10.0) L 02/25/19 07:00 RBC 3.86 M/mm3 (4.00-5.60) L 02/25/19 07:00 Hgb 11.5 GM/dL (11.7-16.9) L 02/25/19 07:00 Hct 34.7 % (35.4-49) L 02/25/19 07:00 MCV 90.0 fl (80-96) 02/25/19 07:00 MCHC 33.0 g/dl (32.0-35.9) 02/25/19 07:00 RDW 14.4 % (11.9-15.9) 02/25/19 07:00 Plt Count 161 K/MM3 (134-434) D 02/25/19 07:00 Sodium 139 mmol/L (136-145) 02/25/19 07:00 Potassium 3.5 mmol/L (3.5-5.1) 02/25/19 07:00 Chloride 104 mmol/L (98-107) 02/25/19 07:00 Carbon Dioxide 28 mmol/L (21-32) 02/25/19 07:00 Anion Gap 6 MMOL/L (8-16) L 02/25/19 07:00 BUN 9.4 mg/dL (7-18) 02/25/19 07:00 Creatinine 0.9 mg/dL (0.55-1.3) 02/25/19 07:00 Random Glucose 95 mg/dL (74-106) 02/25/19 07:00 Calcium 8.4 mg/dL (8.5-10.1) L 02/25/19 07:00 Labs noted. Assessment: 02/26/19 12:36 AOX3, in no acute distress Full ROM, ambulating in the unit. Withdrawal symptoms. Plan: continue detox increase fluids.
[2019-02-26] MEDS ORDERED: chlordiazePOXIDE HCL 10 MG CAPSULE PO PRN (17:00)
[2019-02-26] MEDS: chlordiazePOXIDE HCL 10 MG CAPSULE PO SCH ×2 (17:57→21:59)
[2019-02-26] MEDS: MELATONIN 5 MG TABLETS PO PRN (21:57)
[2019-02-26] MEDS: THIAMINE HCL 100 MG TABLET (FP) PO SCH (21:57)
[2019-02-27] MEDS: chlordiazePOXIDE HCL 10 MG CAPSULE PO SCH ×3 (06:53→19:01)
[2019-02-27] MEDS: AMMONIUM LACTATE 12% LOTION 225 GM BOTTLE TP SCH ×2 (10:18→23:32)
[2019-02-27] MEDS: PRENATAL VITAMINS W/ FOLIC ACID TABLET (FP) PO SCH (10:19)
--- NOTE | 2019-02-27 13:38 | PN ---
S CIWA - CIWA Score Nausea/Vomitin Muscle Tremors: 2 Anxiety: 1-Mildly Anxious Agitation: 2 Paroxysmal Sweats: 2 Orientation: 0-Oriented Tacttile Disturbances: 0-None Auditory Disturbances: 0-None Visual Disturbances: 0-None Headache: 0-None Present CIWA-Ar Total Score: 9 BHS Progress Note (SOAP) Subjective: CO ANXIETY POOR SLEEP SWEATING Objective: 02/27/19 13:37 Vital Signs - 24 hr 02/26/19 02/26/19 02/26/19 13:59 18:05 21:50 Temperature 98.3 F 98.0 F 98.1 F Pulse Rate 88 69 58 L Respiratory 18 18 18 Rate Blood Pressure 148/89 131/89 134/81 02/27/19 02/27/19 02/27/19 00:30 03:30 06:45 Temperature 97.7 F Pulse Rate 53 L Respiratory 18 18 18 Rate Blood Pressure 116/62 02/27/19 02/27/19 09:06 13:08 Temperature 98 F 96.8 F L Pulse Rate 71 58 L Respiratory 20 18 Rate Blood Pressure 116/75 129/80 Laboratory Tests 02/24/19 02/25/19 02/25/19 13:00 07:00 07:00 WBC 2.8 L RBC 3.86 L Hgb 11.5 L Hct 34.7 L MCV 90.0 MCH 29.7 MCHC 33.0 RDW 14.4 Plt Count 161 D MPV 8.6 Sodium Potassium Chloride Carbon Dioxide Anion Gap BUN Creatinine Est GFR (CKD-EPI)AfAm Est GFR (CKD-EPI)NonAf Random Glucose Calcium Total Bilirubin AST ALT Alkaline Phosphatase Total Protein Albumin Urine Color Yellow Urine Appearance Clear Urine pH 7.5 D Ur Specific [place] 1.057 H Urine Protein Negative Urine Glucose (UA) Negative Urine Ketones Trace H Urine Blood Negative Urine Nitrite Negative Urine Bilirubin Negative Urine Urobilinogen 1.0 Ur Leukocyte Esterase Negative RPR Titer HIV 1&2 Antibody Screen Negative HIV P24 Antigen Negative 02/25/19 02/25/19 07:00 07:00 WBC RBC Hgb Hct MCV MCH MCHC RDW Plt Count MPV Sodium 139 Potassium 3.5 Chloride 104 Carbon Dioxide 28 Anion Gap 6 L BUN 9.4 Creatinine 0.9 Est GFR (CKD-EPI)AfAm 114.21 Est GFR (CKD-EPI)NonAf 98.54 Random Glucose 95 Calcium 8.4 L Total Bilirubin 1.1 H AST 60 H ALT 49 Alkaline Phosphatase 79 Total Protein 7.3 Albumin 3.6 Urine Color Urine Appearance Urine pH Ur Specific [place] Urine Protein Urine Glucose (UA) Urine Ketones Urine Blood Urine Nitrite Urine Bilirubin Urine Urobilinogen Ur Leukocyte Esterase RPR Titer Nonreactive HIV 1&2 Antibody Screen HIV P24 Antigen 02/27/19 13:37 ALERT AMBULATING ORIENTED Assessment: 02/27/19 13:37 ETOH DEP AND WITHDRAWAL Plan: CONT DETOX PROTOCOL
[2019-02-27] MEDS: MELATONIN 5 MG TABLETS PO PRN (22:24)
[2019-02-27] MEDS: LOPERAMIDE HCL 2 MG CAPSULE PO PRN (22:25)
[2019-02-27] MEDS: THIAMINE HCL 100 MG TABLET (FP) PO SCH (22:25)
[2019-02-28] MEDS: chlordiazePOXIDE HCL 10 MG CAPSULE PO SCH (06:04)
[2019-02-28 09:31] VITALS: BP 129/71; PULSE 80; TEMP 97.3
[2019-02-28] MEDS: LOPERAMIDE HCL 2 MG CAPSULE PO PRN (10:01)
[2019-02-28] MEDS: PRENATAL VITAMINS W/ FOLIC ACID TABLET (FP) PO SCH (10:02)
[2019-02-28] MEDS: AMMONIUM LACTATE 12% LOTION 225 GM BOTTLE TP SCH (10:02)
--- NOTE | 2019-02-28 17:13 | PN ---
[facility] CIWA - CIWA Score Nausea/Vomitin-No Nausea/No Vomiting Muscle Tremors: None Anxiety: 0-No Anxiety, at Ease Agitation: 1-Slight > Activity Paroxysmal Sweats: No Perspiration Orientation: 0-Oriented Tacttile Disturbances: 0-None Auditory Disturbances: 0-None Visual Disturbances: 0-None Headache: 0-None Present CIWA-Ar Total Score: 1 BHS Progress Note (SOAP) Subjective: Diarrhea (Mild, Significantly Improved Since Time Of Admission). Objective: PATIENT A & O X 3, OBSERVED AMBULATING ON UNIT UNASSISTED. IN NO ACUTE DISTRESS. 02/28/19 17:12 Vital Signs Temperature 97.3 F L 02/28/19 09:30 Pulse Rate 80 02/28/19 09:30 Respiratory Rate 18 02/28/19 09:30 Blood Pressure 129/71 02/28/19 09:30 O2 Sat by Pulse Oximetry (%) Laboratory Tests 02/24/19 02/25/19 02/25/19 13:00 07:00 07:00 WBC 2.8 L RBC 3.86 L Hgb 11.5 L Hct 34.7 L MCV 90.0 MCH 29.7 MCHC 33.0 RDW 14.4 Plt Count 161 D MPV 8.6 Sodium Potassium Chloride Carbon Dioxide Anion Gap BUN Creatinine Est GFR (CKD-EPI)AfAm Est GFR (CKD-EPI)NonAf Random Glucose Calcium Total Bilirubin AST ALT Alkaline Phosphatase Total Protein Albumin Urine Color Yellow Urine Appearance Clear Urine pH 7.5 D Ur Specific [place] 1.057 H Urine Protein Negative Urine Glucose (UA) Negative Urine Ketones Trace H Urine Blood Negative Urine Nitrite Negative Urine Bilirubin Negative Urine Urobilinogen 1.0 Ur Leukocyte Esterase Negative RPR Titer HIV 1&2 Antibody Screen Negative HIV P24 Antigen Negative 02/25/19 02/25/19 07:00 07:00 WBC RBC Hgb Hct MCV MCH MCHC RDW Plt Count MPV Sodium 139 Potassium 3.5 Chloride 104 Carbon Dioxide 28 Anion Gap 6 L BUN 9.4 Creatinine 0.9 Est GFR (CKD-EPI)AfAm 114.21 Est GFR (CKD-EPI)NonAf 98.54 Random Glucose 95 Calcium 8.4 L Total Bilirubin 1.1 H AST 60 H ALT 49 Alkaline Phosphatase 79 Total Protein 7.3 Albumin 3.6 Urine Color Urine Appearance Urine pH Ur Specific [place] Urine Protein Urine Glucose (UA) Urine Ketones Urine Blood Urine Nitrite Urine Bilirubin Urine Urobilinogen Ur Leukocyte Esterase RPR Titer Nonreactive HIV 1&2 Antibody Screen HIV P24 Antigen LABS NOTED. Assessment: 02/28/19 17:13 COMPLETION OF DETOX REGIMEN. Plan: SINCE PATIENT REPORTS THAT CURRENT WITHDRAWAL / DETOX SYMPTOMS ARE MINIMAL IN DEGREE AND THAT HE FEELS WELL OVERALL, AT PATIENTS REQUEST, HE WAS GRANTED AN EARLY DISCHARGE FROM DETOX UNIT TODAY.
--- NOTE | 2019-02-28 17:18 | DS ---
[facility] Detox Discharge Summary Admission Date: 02/24/19 Discharge Date: 02/28/19 - History Present History: Alcohol Dependence, Cannabis Dependence, Sedative Dependence Additional Comments: PATIENT REPORTS THAT CURRENT WITHDRAWAL / DETOX SYMPTOMS ARE MINIMAL IN DEGREE AND THAT HE FEELS WELL OVERALL AT TIME OF DISCHARGE FROM DETOX UNIT. PATIENT GOING TO [facility] [address] [facility]IENT [facility] ([place], [place]) FOR AFTERCARE. PATIENT ADVISED TO FOLLOW-UP WITH TRAUMA THERAPIST AFTER DISCHARGE FROM DETOX FOR GENERAL MEDICAL ASSESSMENT AND FOR ELEVATED AST LEVEL ADN FOR ANEMIA AND FOR LOW WBC LEVEL NOTED ON DETOX ADMISSION LABORATORY ASSESSMENT. PATIENT VERBALIZED UNDERSTANDING OF RECOMMENDATION. COPIES OF RESULTS OF ALL LABS DRAWN WHILE ADMITTED FOR DETOX GIVEN TO PATIENT AT TIME OF DISCHARGE FROM DETOX UNIT. PATIENT WAS DISCHARGED FORM DETOX UNIT IN STABLE MEDICAL CONDITION. Pertinent Past History: History Of Tracheostomy, History Of laceration Of face, History Of Sprain Of right Ankle, Weight Loss, Leukopenia, Anemia, Elevated AST Level. - Physical Exam Results Vital Signs: Vital Signs Temperature 97.3 F L 02/28/19 09:30 Pulse Rate 80 02/28/19 09:30 Respiratory Rate 18 02/28/19 09:30 Blood Pressure 129/71 02/28/19 09:30 O2 Sat by Pulse Oximetry (%) Pertinent Admission Physical Exam Findings: WITHDRAWAL SYMPTOMS. Laboratory Tests 02/24/19 02/25/19 02/25/19 13:00 07:00 07:00 WBC 2.8 L RBC 3.86 L Hgb 11.5 L Hct 34.7 L MCV 90.0 MCH 29.7 MCHC 33.0 RDW 14.4 Plt Count 161 D MPV 8.6 Sodium Potassium Chloride Carbon Dioxide Anion Gap BUN Creatinine Est GFR (CKD-EPI)AfAm Est GFR (CKD-EPI)NonAf Random Glucose Calcium Total Bilirubin AST ALT Alkaline Phosphatase Total Protein Albumin Urine Color Yellow Urine Appearance Clear Urine pH 7.5 D Ur Specific [place] 1.057 H Urine Protein Negative Urine Glucose (UA) Negative Urine Ketones Trace H Urine Blood Negative Urine Nitrite Negative Urine Bilirubin Negative Urine Urobilinogen 1.0 Ur Leukocyte Esterase Negative RPR Titer HIV 1&2 Antibody Screen Negative HIV P24 Antigen Negative 02/25/19 02/25/19 07:00 07:00 WBC RBC Hgb Hct MCV MCH MCHC RDW Plt Count MPV Sodium 139 Potassium 3.5 Chloride 104 Carbon Dioxide 28 Anion Gap 6 L BUN 9.4 Creatinine 0.9 Est GFR (CKD-EPI)AfAm 114.21 Est GFR (CKD-EPI)NonAf 98.54 Random Glucose 95 Calcium 8.4 L Total Bilirubin 1.1 H AST 60 H ALT 49 Alkaline Phosphatase 79 Total Protein 7.3 Albumin 3.6 Urine Color Urine Appearance Urine pH Ur Specific [place] Urine Protein Urine Glucose (UA) Urine Ketones Urine Blood Urine Nitrite Urine Bilirubin Urine Urobilinogen Ur Leukocyte Esterase RPR Titer Nonreactive HIV 1&2 Antibody Screen HIV P24 Antigen LABS NOTED. - Treatment Hospital Course: Detox Protocol Followed, Detoxed Safely, Responded well, Discharged Condition Good Patient has Accepted a Rehab Referral to: [facility] ([place], [place]). - Medication Discharge Medications: Ambulatory Orders NK [No Known Home Medication] 11/07/18 - Diagnosis (1) Alcohol dependence with uncomplicated withdrawal Status: Acute (2) History of tracheostomy Status: Acute (3) Laceration of face Status: Acute Qualifiers: Encounter type: sequela Qualified Code(s): S01.81XS - Laceration without foreign body of other part of head, sequela (4) Leukopenia Status: Acute Qualifiers: Leukopenia type: unspecified Qualified Code(s): D72.819 - Decreased white blood cell count, unspecified (5) Sprain of right ankle Status: Acute Qualifiers: Encounter type: sequela Involved ligament of ankle: unspecified ligament Qualified Code(s): S93.401S - Sprain of unspecified ligament of right ankle, sequela (6) Uncomplicated sedative, hypnotic or anxiolytic withdrawal Status: Acute (7) Weight loss Status: Acute (8) Cannabis dependence, uncomplicated Status: Chronic (9) Anemia Status: Acute Qualifiers: Anemia type: unspecified type Qualified Code(s): D64.9 - Anemia, unspecified (10) Elevated aspartate aminotransferase level Status: Acute - AMA Did Patient Leave Against Medical Advice: No
== END 2019-02-28 11:26 | disposition home or self-care (01) | DRG 775 ==
LOC: YASAS 09:46 → Y3N 12:13
PROVIDERS: ADMIT Surgery; ATTEND Surgery
PROC: HZ2ZZZZ Detoxification Services for Substance Abuse Treatment (ICD-10-PCS; principal; 2019-02-24)
DX: F10.230 Alcohol dependence with withdrawal, uncomplicated (principal); F13.230 Sedative, hypnotic or anxiolytic dependence with withdrawal, uncomplicated; F12.20 Cannabis dependence, uncomplicated; D72.819 Decreased white blood cell count, unspecified; R63.4 Abnormal weight loss; D64.9 Anemia, unspecified; R74.0 Nonspecific elevation of levels of transaminase and lactic acid dehydrogenase [LDH]; Z93.0 Tracheostomy status
CPT/HCPCS: 36415; 80053; 81003; 85027; 86593; 87389; Q0162

== ENCOUNTER 2019-08-09 11:16 | Inpatient (IN) | payer OTHER ==
[2019-08-09 11:46] VITALS: BMI 26.3
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
[2019-08-09] MEDS ORDERED: MENTHOL/PHENOL 1 EACH UD MM PRN (13:20)
[2019-08-09] MEDS ORDERED: MAG HYDROX/AL HYDROX/SIMETH 30 ML UNIT-DOSE CUP PO PRN (13:20)
[2019-08-09] MEDS ORDERED: hydrOXYzine PAMOATE 25 MG CAPSULE (FP) PO PRN (13:20)
[2019-08-09] MEDS ORDERED: LORazepam 1 MG TABLET PO PRN (13:20)
[2019-08-09] MEDS ORDERED: ACETAMINOPHEN 325 MG TABLET (FP) PO PRN ×2 (13:20)
[2019-08-09] MEDS ORDERED: PROCHLORPERAZINE MALEATE 5 MG TABLET PO PRN (13:20)
[2019-08-09] MEDS ORDERED: IBUPROFEN 400 MG TABLET (FP) PO PRN (13:20)
[2019-08-09] MEDS ORDERED: DICYCLOMINE HCL 10 MG CAPSULE PO PRN (13:20)
[2019-08-09] MEDS ORDERED: ARTIFICIAL TEARS (POLYVINYL ALCOHOL) OPTH DROPS OU PRN (13:37)
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
[2019-08-09] MEDS: LORazepam 2 MG TABLET PO SCH ×2 (17:08→22:19)
[2019-08-09] MEDS: THIAMINE HCL 100 MG TABLET (FP) PO SCH (22:19)
[2019-08-09] MEDS: MELATONIN 5 MG TABLETS PO PRN (22:19)
[2019-08-10] MEDS: LORazepam 2 MG TABLET PO SCH ×4 (05:19→22:34)
[2019-08-10] MEDS: LOPERAMIDE HCL 2 MG CAPSULE PO PRN (05:19)
[2019-08-10] MEDS ORDERED: ONDANSETRON *ODT* 4 MG TABLET SL ONE (09:09)
[2019-08-10] MEDS: PRENATAL VITAMINS W/ FOLIC ACID TABLET (FP) PO SCH (10:09)
[2019-08-10 10:17] LABS: ALBUMIN 3.5 g/dl (3.4-5.0); BILIRUBIN,TOTAL 0.9 mg/dL (0.2-1); CALCIUM 8.9 mg/dL (8.5-10.1); CREATININE 0.9 mg/dL (0.55-1.3); POTASSIUM 3.8 mmol/L (3.5-5.1); TOT PROT 7.3 g/dl (6.4-8.2)
[2019-08-10 10:40] LABS: HEMATOCRIT 36.1 % (35.4-49); MCH 30.3 pg (25.7-33.7); MCHC 33.4 g/dl (32.0-35.9); MEAN CELL VOLUME 90.8 fl (80-96); MEAN PLT VOLUME 8.4 fl (7.5-11.1); PLATELET COUNT 220 K/MM3 (134-434); RBC 3.97 M/mm3 (4.00-5.60); RDW 14.2 % (11.9-15.9); WHITE BLOOD COUNT 3.2 K/mm3 (4.0-10.0)
--- NOTE | 2019-08-10 14:39 | PN ---
[facility] CIWA - CIWA Score Nausea/Vomitin-Mild Nausea/No Vomiting Muscle Tremors: 3 Anxiety: 2 Agitation: 1-Slight > Activity Paroxysmal Sweats: 2 Orientation: 0-Oriented Tacttile Disturbances: 1-Very Mild Itch/Numbness Auditory Disturbances: 0-None Visual Disturbances: 0-None Headache: 1-Very Mild CIWA-Ar Total Score: 11 S Progress Note (SOAP) Subjective: 53 years old male admitted on 10/09/18 for alcohol and benzo withdrawal sx management treated with ativan detox regimen c/o gi distress discontinue motrin begin pepcid 20 mg bid Objective: 08/10/19 14:38 Vital Signs Temperature 98.1 F 08/10/19 13:49 Pulse Rate 56 L 08/10/19 13:49 Respiratory Rate 18 08/10/19 13:49 Blood Pressure 131/85 08/10/19 13:49 O2 Sat by Pulse Oximetry (%) Laboratory Last Values WBC 3.2 K/mm3 (4.0-10.0) L 08/10/19 07:40 RBC 3.97 M/mm3 (4.00-5.60) L 08/10/19 07:40 Hgb 12.0 GM/dL (11.7-16.9) 08/10/19 07:40 Hct 36.1 % (35.4-49) 08/10/19 07:40 MCV 90.8 fl (80-96) 08/10/19 07:40 MCH 30.3 pg (25.7-33.7) 08/10/19 07:40 MCHC 33.4 g/dl (32.0-35.9) 08/10/19 07:40 RDW 14.2 % (11.9-15.9) 08/10/19 07:40 Plt Count 220 K/MM3 (134-434) D 08/10/19 07:40 MPV 8.4 fl (7.5-11.1) 08/10/19 07:40 Sodium 138 mmol/L (136-145) 08/10/19 07:40 Potassium 3.8 mmol/L (3.5-5.1) 08/10/19 07:40 Chloride 108 mmol/L (98-107) H 08/10/19 07:40 Carbon Dioxide 24 mmol/L (21-32) 08/10/19 07:40 Anion Gap 6 MMOL/L (8-16) L 08/10/19 07:40 BUN 12.0 mg/dL (7-18) 08/10/19 07:40 Creatinine 0.9 mg/dL (0.55-1.3) 08/10/19 07:40 Est GFR (CKD-EPI)AfAm 114.21 08/10/19 07:40 Est GFR (CKD-EPI)NonAf 98.54 08/10/19 07:40 Random Glucose 100 mg/dL (74-106) 08/10/19 07:40 Calcium 8.9 mg/dL (8.5-10.1) 08/10/19 07:40 Total Bilirubin 0.9 mg/dL (0.2-1) 08/10/19 07:40 AST 73 U/L (15-37) H 08/10/19 07:40 ALT 60 U/L (13-61) 08/10/19 07:40 Alkaline Phosphatase 76 U/L (45-117) 08/10/19 07:40 Total Protein 7.3 g/dl (6.4-8.2) 08/10/19 07:40 Albumin 3.5 g/dl (3.4-5.0) 08/10/19 07:40 RPR Titer Nonreactive (NONREACTIVE) 08/10/19 07:40 lab noted Assessment: 08/10/19 14:38 alcohol and benzo withdrawal sx Plan: continue ativan detox regimen
[2019-08-10] MEDS: FAMOTIDINE 20 MG TABLET PO SCH ×2 (17:18→22:33)
[2019-08-10] MEDS: THIAMINE HCL 100 MG TABLET (FP) PO SCH (22:33)
[2019-08-10] MEDS: MELATONIN 5 MG TABLETS PO PRN (22:35)
[2019-08-11] MEDS: LORazepam 1 MG TABLET PO SCH ×4 (05:29→22:06)
[2019-08-11] MEDS: FAMOTIDINE 20 MG TABLET PO SCH ×2 (10:06→22:06)
[2019-08-11] MEDS: PRENATAL VITAMINS W/ FOLIC ACID TABLET (FP) PO SCH (10:06)
--- NOTE | 2019-08-11 11:32 | PN ---
[facility] CIWA - CIWA Score Nausea/Vomitin-Mild Nausea/No Vomiting Muscle Tremors: 2 Anxiety: 3 Agitation: 2 Paroxysmal Sweats: 1-Minimal Palms Moist Orientation: 0-Oriented Tacttile Disturbances: 0-None Auditory Disturbances: 0-None Visual Disturbances: 0-None Headache: 1-Very Mild CIWA-Ar Total Score: 10 S Progress Note (SOAP) Subjective: 53 years old male admitted on 08/09/19 for alcohol and benzo withdrawal sx management treated with ativan detox regimen feeling ok today ambulating on hallway denies dizziness Objective: 08/11/19 11:31 Vital Signs Temperature 99.1 F 08/11/19 09:17 Pulse Rate 73 08/11/19 09:17 Respiratory Rate 18 08/11/19 09:17 Blood Pressure 136/82 08/11/19 09:17 O2 Sat by Pulse Oximetry (%) Laboratory Last Values WBC 3.2 K/mm3 (4.0-10.0) L 08/10/19 07:40 RBC 3.97 M/mm3 (4.00-5.60) L 08/10/19 07:40 Hgb 12.0 GM/dL (11.7-16.9) 08/10/19 07:40 Hct 36.1 % (35.4-49) 08/10/19 07:40 MCV 90.8 fl (80-96) 08/10/19 07:40 MCH 30.3 pg (25.7-33.7) 08/10/19 07:40 MCHC 33.4 g/dl (32.0-35.9) 08/10/19 07:40 RDW 14.2 % (11.9-15.9) 08/10/19 07:40 Plt Count 220 K/MM3 (134-434) D 08/10/19 07:40 MPV 8.4 fl (7.5-11.1) 08/10/19 07:40 Sodium 138 mmol/L (136-145) 08/10/19 07:40 Potassium 3.8 mmol/L (3.5-5.1) 08/10/19 07:40 Chloride 108 mmol/L (98-107) H 08/10/19 07:40 Carbon Dioxide 24 mmol/L (21-32) 08/10/19 07:40 Anion Gap 6 MMOL/L (8-16) L 08/10/19 07:40 BUN 12.0 mg/dL (7-18) 08/10/19 07:40 Creatinine 0.9 mg/dL (0.55-1.3) 08/10/19 07:40 Est GFR (CKD-EPI)AfAm 114.21 08/10/19 07:40 Est GFR (CKD-EPI)NonAf 98.54 08/10/19 07:40 Random Glucose 100 mg/dL (74-106) 08/10/19 07:40 Calcium 8.9 mg/dL (8.5-10.1) 08/10/19 07:40 Total Bilirubin 0.9 mg/dL (0.2-1) 08/10/19 07:40 AST 73 U/L (15-37) H 08/10/19 07:40 ALT 60 U/L (13-61) 08/10/19 07:40 Alkaline Phosphatase 76 U/L (45-117) 08/10/19 07:40 Total Protein 7.3 g/dl (6.4-8.2) 08/10/19 07:40 Albumin 3.5 g/dl (3.4-5.0) 08/10/19 07:40 RPR Titer Nonreactive (NONREACTIVE) 08/10/19 07:40 lab noted Assessment: 08/11/19 11:31 alcohol and benzo withdrawal sx Plan: continue ativan detox regimen
[2019-08-11] MEDS: LOPERAMIDE HCL 2 MG CAPSULE PO PRN (17:39)
[2019-08-11] MEDS: THIAMINE HCL 100 MG TABLET (FP) PO SCH (22:06)
[2019-08-11] MEDS: MELATONIN 5 MG TABLETS PO PRN (22:06)
[2019-08-11] MEDS: METHOCARBAMOL 500 MG TABLET PO PRN (22:37)
[2019-08-12] MEDS ORDERED: LORazepam 0.5 MG TABLET PO PRN
[2019-08-12] MEDS: LORazepam 0.5 MG TABLET PO SCH ×4 (05:37→22:06)
[2019-08-12] MEDS: METHOCARBAMOL 500 MG TABLET PO PRN ×2 (05:38→15:04)
[2019-08-12] MEDS: PRENATAL VITAMINS W/ FOLIC ACID TABLET (FP) PO SCH (10:10)
[2019-08-12] MEDS: FAMOTIDINE 20 MG TABLET PO SCH ×2 (10:10→22:06)
--- NOTE | 2019-08-12 11:35 | PN ---
[facility] CIWA - CIWA Score Nausea/Vomitin-Int. Nausea w/Dry Heave Muscle Tremors: 1-None Visible, but [place] Anxiety: 1-Mildly Anxious Agitation: 1-Slight > Activity Paroxysmal Sweats: 2 Orientation: 0-Oriented Tacttile Disturbances: 2-Mild Itch/Numbness/Burn Auditory Disturbances: 0-None Visual Disturbances: 0-None Headache: 0-None Present CIWA-Ar Total Score: 11 BHS Progress Note (SOAP) Subjective: interrupted sleep, sweats, nausea, vomiting x1, muscle cramps Objective: 08/12/19 11:31 Vital Signs Temperature 97.8 F 08/12/19 09:25 Pulse Rate 78 08/12/19 09:25 Respiratory Rate 18 08/12/19 09:25 Blood Pressure 128/74 08/12/19 09:25 O2 Sat by Pulse Oximetry (%) Laboratory Tests 08/10/19 08/10/19 08/10/19 07:40 07:40 07:40 WBC 3.2 L RBC 3.97 L Hgb 12.0 Hct 36.1 MCV 90.8 MCH 30.3 MCHC 33.4 RDW 14.2 Plt Count 220 D MPV 8.4 Sodium 138 Potassium 3.8 Chloride 108 H Carbon Dioxide 24 Anion Gap 6 L BUN 12.0 Creatinine 0.9 Est GFR (CKD-EPI)AfAm 114.21 Est GFR (CKD-EPI)NonAf 98.54 Random Glucose 100 Calcium 8.9 Total Bilirubin 0.9 AST 73 H ALT 60 Alkaline Phosphatase 76 Total Protein 7.3 Albumin 3.5 RPR Titer Nonreactive HIV 1&2 Antibody Screen Cancelled HIV P24 Antigen Cancelled pt aox3 lying in bed no vomiting Assessment: 08/12/19 11:33 withdrawal sx's cramps leucopenia 3.2 elevated sgot/sgpt 08/12/19 11:35 08/12/19 11:36 Plan: cont. detox increase fluids robaxin prn [place] prn
[2019-08-12] MEDS: THIAMINE HCL 100 MG TABLET (FP) PO SCH (22:06)
[2019-08-12] MEDS: MELATONIN 5 MG TABLETS PO PRN (22:06)
[2019-08-13] MEDS ORDERED: LORazepam 0.5 MG TABLET PO ONE (05:00)
[2019-08-13 09:29] VITALS: BP 138/74; PULSE 58; TEMP 96.8
[2019-08-13] MEDS: FAMOTIDINE 20 MG TABLET PO SCH (09:34)
[2019-08-13] MEDS: PRENATAL VITAMINS W/ FOLIC ACID TABLET (FP) PO SCH (09:34)
--- NOTE | 2019-08-13 13:34 | DS ---
[facility] Detox Discharge Summary Admission Date: 08/09/19 Discharge Date: 08/13/19 - History Present History: Alcohol Dependence, Cannabis Dependence, Sedative Dependence Additional Comments: Pt is medically cleared and is discharged today. Pt completed the detox protocol. Pt is encouraged to complete rehab protocol and also follow-up with outpatient CD program and also to follow-up with his pmd. Pt verbalized understanding. Pt is alert and oriented x3 and in no acute respiratory distress. Pertinent Past History: H/o alcohol, benzo's, cannabis use disorder. - Physical Exam Results Vital Signs: Vital Signs Temperature 96.8 F L 08/13/19 09:28 Pulse Rate 58 L 08/13/19 09:28 Respiratory Rate 18 08/13/19 09:28 Blood Pressure 138/74 08/13/19 09:28 O2 Sat by Pulse Oximetry (%) Vital Signs 08/13/19 08/13/19 06:37 09:28 Temperature 97.6 F 96.8 F L Pulse Rate 51 L 58 L Respiratory 18 18 Rate Blood Pressure 155/83 138/74 Laboratory Last Values WBC 3.2 K/mm3 (4.0-10.0) L 08/10/19 07:40 RBC 3.97 M/mm3 (4.00-5.60) L 08/10/19 07:40 Hgb 12.0 GM/dL (11.7-16.9) 08/10/19 07:40 Hct 36.1 % (35.4-49) 08/10/19 07:40 MCV 90.8 fl (80-96) 08/10/19 07:40 MCH 30.3 pg (25.7-33.7) 08/10/19 07:40 MCHC 33.4 g/dl (32.0-35.9) 08/10/19 07:40 RDW 14.2 % (11.9-15.9) 08/10/19 07:40 Plt Count 220 K/MM3 (134-434) D 08/10/19 07:40 MPV 8.4 fl (7.5-11.1) 08/10/19 07:40 Sodium 138 mmol/L (136-145) 08/10/19 07:40 Potassium 3.8 mmol/L (3.5-5.1) 08/10/19 07:40 Chloride 108 mmol/L (98-107) H 08/10/19 07:40 Carbon Dioxide 24 mmol/L (21-32) 08/10/19 07:40 Anion Gap 6 MMOL/L (8-16) L 08/10/19 07:40 BUN 12.0 mg/dL (7-18) 08/10/19 07:40 Creatinine 0.9 mg/dL (0.55-1.3) 08/10/19 07:40 Est GFR (CKD-EPI)AfAm 114.21 08/10/19 07:40 Est GFR (CKD-EPI)NonAf 98.54 08/10/19 07:40 Random Glucose 100 mg/dL (74-106) 08/10/19 07:40 Calcium 8.9 mg/dL (8.5-10.1) 08/10/19 07:40 Total Bilirubin 0.9 mg/dL (0.2-1) 08/10/19 07:40 AST 73 U/L (15-37) H 08/10/19 07:40 ALT 60 U/L (13-61) 08/10/19 07:40 Alkaline Phosphatase 76 U/L (45-117) 08/10/19 07:40 Total Protein 7.3 g/dl (6.4-8.2) 08/10/19 07:40 Albumin 3.5 g/dl (3.4-5.0) 08/10/19 07:40 RPR Titer Nonreactive (NONREACTIVE) 08/10/19 07:40 HIV 1&2 Ag/Ab, 4th Gen Non reactive (Non Reactive) 08/10/19 14:50 HIV 1&2 Antibody Screen Cancelled 08/10/19 07:40 HIV P24 Antigen Cancelled 08/10/19 07:40 Labs noted. Pertinent Admission Physical Exam Findings: withdrawal symptoms. - Treatment Hospital Course: Detox Protocol Followed, Detoxed Safely, Responded well, Discharged Condition Good - Medication Discharge Medications: Ambulatory Orders NK [No Known Home Medication] 11/07/18 - Diagnosis (1) Alcohol dependence with uncomplicated withdrawal Status: Acute (2) Anemia Status: Acute Qualifiers: Anemia type: unspecified type Qualified Code(s): D64.9 - Anemia, unspecified (3) Elevated aspartate aminotransferase level Status: Acute (4) History of tracheostomy Status: Acute (5) Leukopenia Status: Acute Qualifiers: Leukopenia type: unspecified Qualified Code(s): D72.819 - Decreased white blood cell count, unspecified (6) Cannabis dependence, uncomplicated Status: Chronic - AMA Did Patient Leave Against Medical Advice: No S CIWA - CIWA Score Nausea/Vomitin-No Nausea/No Vomiting Muscle Tremors: None Anxiety: 1-Mildly Anxious Agitation: 0-Normal Activity Paroxysmal Sweats: 2 Orientation: 0-Oriented Tacttile Disturbances: 0-None Auditory Disturbances: 0-None Visual Disturbances: 0-None Headache: 0-None Present CIWA-Ar Total Score: 3
== END 2019-08-13 09:41 | disposition home or self-care (01) | DRG 775 ==
LOC: YASAS 11:16 → Y3N 14:25
PROVIDERS: ADMIT Allergy & Immunology; ATTEND Allergy & Immunology
PROC: HZ2ZZZZ Detoxification Services for Substance Abuse Treatment (ICD-10-PCS; principal; 2019-08-09)
DX: F10.230 Alcohol dependence with withdrawal, uncomplicated (principal); F13.230 Sedative, hypnotic or anxiolytic dependence with withdrawal, uncomplicated; F12.20 Cannabis dependence, uncomplicated; D72.819 Decreased white blood cell count, unspecified; D64.9 Anemia, unspecified; R74.0 Nonspecific elevation of levels of transaminase and lactic acid dehydrogenase [LDH]; Z98.890 Other specified postprocedural states
CPT/HCPCS: 36415; 80053; 85027; 86593; 87389; Q0162

== ENCOUNTER 2022-02-07 08:12 | Inpatient (IN) | payer OTHER ==
[2022-02-07 09:01] VITALS: BMI 29.5
[2022-02-07] MEDS ORDERED: P-EPHED 60MG/TRIPROLIDI 2.5MG TABLET PO PRN (09:22)
[2022-02-07] MEDS ORDERED: MAGNESIUM HYDROX 2400MG/30ML ORAL SUSPENSION 30 ML CUP PO PRN (09:22)
[2022-02-07] MEDS ORDERED: guaiFENesin 200 MG/10 ML 10 ML UNIT-DOSE CUPS PO PRN (09:22)
[2022-02-07] MEDS ORDERED: ACETAMINOPHEN 325 MG TABLET (FP) PO PRN (09:22)
[2022-02-07] MEDS ORDERED: MAGNESIUM CITRATE 300 ML BOTTLE PO PRN (09:22)
[2022-02-07] MEDS ORDERED: LOPERAMIDE HCL 2 MG CAPSULE PO PRN (09:22)
[2022-02-07] MEDS: hydrOXYzine PAMOATE 25 MG CAPSULE (FP) PO SCH ×4 (14:20→21:20)
[2022-02-07] MEDS ORDERED: TUBERCULIN PPD 5 TU/0.1ML VIAL ID ONE (14:21)
[2022-02-07] MEDS: PRENATAL VITAMINS W/ FOLIC ACID TABLET (FP) PO SCH (14:24)
[2022-02-07 16:20] LABS: HEMATOCRIT 40.5 % (35.4-49); HEMOGLOBIN 13.5 GM/dL (11.7-16.9); MCH 28.5 pg (25.7-33.7); MCHC 33.3 g/dl (32.0-35.9); MEAN CELL VOLUME 85.8 fl (80-96); MEAN PLT VOLUME 8.5 fl (7.5-11.1); PLATELET COUNT 204 10^3/uL (134-434); RBC 4.73 M/mm3 (4.00-5.60); RDW 14.7 % (11.9-15.9); WHITE BLOOD COUNT 4.2 K/mm3 (4.0-10.0)
[2022-02-07 16:26] LABS: BLOOD UREA NITROGEN 19.9 mg/dL (7-18); CALCIUM 8.9 mg/dL (8.5-10.1)
[2022-02-07 16:27] LABS: ALBUMIN 4.4 g/dl (3.4-5.0)
[2022-02-07 16:30] LABS: CREATININE 1.1 mg/dL (0.55-1.3)
[2022-02-07 16:31] LABS: BILIRUBIN,TOTAL 0.5 mg/dL (0.2-1); TOT PROT 8.6 g/dl (6.4-8.2)
[2022-02-07 17:04] LABS: SYPHILIS W/ RPR CONF NON-REACTIVE (NONREACTIVE)
[2022-02-07] MEDS: LORATADINE 10 MG TABLET PO SCH (18:24)
[2022-02-07] MEDS: FLUTICASONE PROP 0.05% 16 GM NASAL SPRAY NS SCH ×2 (19:10→21:19)
[2022-02-07] MEDS: THIAMINE HCL 100 MG TABLET (FP) PO SCH (21:20)
[2022-02-07] MEDS: MELATONIN 5 MG TABLETS PO SCH (21:20)
[2022-02-08] MEDS: hydrOXYzine PAMOATE 25 MG CAPSULE (FP) PO SCH ×5 (06:00→21:11)
[2022-02-08] MEDS: FLUTICASONE PROP 0.05% 16 GM NASAL SPRAY NS SCH ×2 (10:11→21:12)
[2022-02-08] MEDS: LORATADINE 10 MG TABLET PO SCH (10:11)
[2022-02-08] MEDS: PRENATAL VITAMINS W/ FOLIC ACID TABLET (FP) PO SCH (10:12)
[2022-02-08] MEDS: MENTHOL/PHENOL 1 EACH UD MM PRN ×3 (10:13→21:12)
[2022-02-08] MEDS: THIAMINE HCL 100 MG TABLET (FP) PO SCH (21:11)
[2022-02-08] MEDS: MELATONIN 5 MG TABLETS PO SCH (21:12)
[2022-02-09] MEDS: IBUPROFEN 400 MG TABLET (FP) PO PRN ×3 (06:55→21:39)
[2022-02-09] MEDS: hydrOXYzine PAMOATE 25 MG CAPSULE (FP) PO SCH ×5 (06:56→23:32)
[2022-02-09] MEDS: LORATADINE 10 MG TABLET PO SCH (09:56)
[2022-02-09] MEDS: PRENATAL VITAMINS W/ FOLIC ACID TABLET (FP) PO SCH (09:56)
[2022-02-09] MEDS: FLUTICASONE PROP 0.05% 16 GM NASAL SPRAY NS SCH ×2 (09:56→21:38)
[2022-02-09] MEDS: MENTHOL/PHENOL 1 EACH UD MM PRN ×2 (09:57→21:42)
[2022-02-09] MEDS: MAG HYDROX/AL HYDROX/SIMETH 30 ML UNIT-DOSE CUP PO PRN (10:20)
[2022-02-09] MEDS: ACETAMINOPHEN 325 MG TABLET (FP) PO PRN (11:10)
[2022-02-09] MEDS: MELATONIN 5 MG TABLETS PO SCH (23:31)
[2022-02-09] MEDS: THIAMINE HCL 100 MG TABLET (FP) PO SCH (23:32)
[2022-02-10] MEDS: hydrOXYzine PAMOATE 25 MG CAPSULE (FP) PO SCH ×5 (06:38→21:39)
[2022-02-10] MEDS: IBUPROFEN 400 MG TABLET (FP) PO PRN ×2 (06:39→21:40)
[2022-02-10] MEDS: LORATADINE 10 MG TABLET PO SCH (10:20)
[2022-02-10] MEDS: PRENATAL VITAMINS W/ FOLIC ACID TABLET (FP) PO SCH (10:20)
[2022-02-10] MEDS: FLUTICASONE PROP 0.05% 16 GM NASAL SPRAY NS SCH ×2 (10:21→21:39)
[2022-02-10] MEDS: ACETAMINOPHEN 325 MG TABLET (FP) PO PRN (10:23)
[2022-02-10] MEDS: MENTHOL/PHENOL 1 EACH UD MM PRN ×2 (10:24→21:41)
[2022-02-10] MEDS: MELATONIN 5 MG TABLETS PO SCH (21:39)
[2022-02-10] MEDS: THIAMINE HCL 100 MG TABLET (FP) PO SCH (21:40)
[2022-02-11] MEDS: hydrOXYzine PAMOATE 25 MG CAPSULE (FP) PO SCH ×5 (06:41→21:35)
[2022-02-11] MEDS: FLUTICASONE PROP 0.05% 16 GM NASAL SPRAY NS SCH ×2 (10:37→21:36)
[2022-02-11] MEDS: PRENATAL VITAMINS W/ FOLIC ACID TABLET (FP) PO SCH (10:38)
[2022-02-11] MEDS: LORATADINE 10 MG TABLET PO SCH (10:38)
[2022-02-11] MEDS: ACETAMINOPHEN 325 MG TABLET (FP) PO PRN (18:47)
[2022-02-11] MEDS: MELATONIN 5 MG TABLETS PO SCH (21:35)
[2022-02-11] MEDS: THIAMINE HCL 100 MG TABLET (FP) PO SCH (21:35)
[2022-02-12] MEDS: hydrOXYzine PAMOATE 25 MG CAPSULE (FP) PO SCH ×5 (06:39→22:01)
[2022-02-12] MEDS: LORATADINE 10 MG TABLET PO SCH (10:44)
[2022-02-12] MEDS: PRENATAL VITAMINS W/ FOLIC ACID TABLET (FP) PO SCH (10:44)
[2022-02-12] MEDS: FLUTICASONE PROP 0.05% 16 GM NASAL SPRAY NS SCH ×2 (10:44→22:01)
[2022-02-12] MEDS: IBUPROFEN 400 MG TABLET (FP) PO PRN (10:45)
[2022-02-12] MEDS: MENTHOL/PHENOL 1 EACH UD MM PRN (10:48)
[2022-02-12] MEDS: MAG HYDROX/AL HYDROX/SIMETH 30 ML UNIT-DOSE CUP PO PRN (18:13)
[2022-02-12] MEDS: ACETAMINOPHEN 325 MG TABLET (FP) PO PRN (18:13)
[2022-02-12] MEDS: THIAMINE HCL 100 MG TABLET (FP) PO SCH (22:01)
[2022-02-12] MEDS: MELATONIN 5 MG TABLETS PO SCH (22:01)
[2022-02-13] MEDS: hydrOXYzine PAMOATE 25 MG CAPSULE (FP) PO SCH ×5 (06:31→21:24)
[2022-02-13] MEDS: ACETAMINOPHEN 325 MG TABLET (FP) PO PRN (08:27)
[2022-02-13] MEDS: LORATADINE 10 MG TABLET PO SCH (10:06)
[2022-02-13] MEDS: PRENATAL VITAMINS W/ FOLIC ACID TABLET (FP) PO SCH (10:06)
[2022-02-13] MEDS: FLUTICASONE PROP 0.05% 16 GM NASAL SPRAY NS SCH ×2 (10:07→21:23)
[2022-02-13] MEDS: IBUPROFEN 400 MG TABLET (FP) PO PRN (21:22)
[2022-02-13] MEDS: THIAMINE HCL 100 MG TABLET (FP) PO SCH (21:22)
[2022-02-13] MEDS: MELATONIN 5 MG TABLETS PO SCH (21:23)
[2022-02-14] MEDS: hydrOXYzine PAMOATE 25 MG CAPSULE (FP) PO SCH (07:15)
[2022-02-14] MEDS ORDERED: hydrOXYzine PAMOATE 25 MG CAPSULE (FP) PO PRN (09:19)
[2022-02-14] MEDS: PRENATAL VITAMINS W/ FOLIC ACID TABLET (FP) PO SCH (09:58)
[2022-02-14] MEDS: LORATADINE 10 MG TABLET PO SCH (09:59)
[2022-02-14] MEDS: FLUTICASONE PROP 0.05% 16 GM NASAL SPRAY NS SCH ×2 (09:59→21:42)
[2022-02-14] MEDS: MELATONIN 5 MG TABLETS PO SCH (21:42)
[2022-02-14] MEDS: THIAMINE HCL 100 MG TABLET (FP) PO SCH (21:43)
[2022-02-14] MEDS: MAG HYDROX/AL HYDROX/SIMETH 30 ML UNIT-DOSE CUP PO PRN (22:02)
[2022-02-15] MEDS: IBUPROFEN 400 MG TABLET (FP) PO PRN ×2 (05:58→21:25)
[2022-02-15] MEDS: FLUTICASONE PROP 0.05% 16 GM NASAL SPRAY NS SCH ×2 (09:47→21:25)
[2022-02-15] MEDS: PRENATAL VITAMINS W/ FOLIC ACID TABLET (FP) PO SCH (09:47)
[2022-02-15] MEDS: LORATADINE 10 MG TABLET PO SCH (09:47)
[2022-02-15] MEDS: MENTHOL/PHENOL 1 EACH UD MM PRN (09:49)
[2022-02-15] MEDS: MAG HYDROX/AL HYDROX/SIMETH 30 ML UNIT-DOSE CUP PO PRN (18:12)
[2022-02-15] MEDS: THIAMINE HCL 100 MG TABLET (FP) PO SCH (21:24)
[2022-02-15] MEDS: MELATONIN 5 MG TABLETS PO SCH (21:25)
[2022-02-16] MEDS: ACETAMINOPHEN 325 MG TABLET (FP) PO PRN (05:54)
[2022-02-16] MEDS: PRENATAL VITAMINS W/ FOLIC ACID TABLET (FP) PO SCH (10:06)
[2022-02-16] MEDS: LORATADINE 10 MG TABLET PO SCH (10:06)
[2022-02-16] MEDS: FLUTICASONE PROP 0.05% 16 GM NASAL SPRAY NS SCH ×2 (10:06→21:37)
[2022-02-16] MEDS: THIAMINE HCL 100 MG TABLET (FP) PO SCH (21:37)
[2022-02-16] MEDS: MELATONIN 5 MG TABLETS PO SCH (21:37)
[2022-02-17] MEDS: PRENATAL VITAMINS W/ FOLIC ACID TABLET (FP) PO SCH (10:08)
[2022-02-17] MEDS: LORATADINE 10 MG TABLET PO SCH (10:08)
[2022-02-17] MEDS: FLUTICASONE PROP 0.05% 16 GM NASAL SPRAY NS SCH ×2 (10:08→21:55)
[2022-02-17] MEDS: THIAMINE HCL 100 MG TABLET (FP) PO SCH (21:56)
[2022-02-17] MEDS: MELATONIN 5 MG TABLETS PO SCH (21:56)
[2022-02-18] MEDS: FLUTICASONE PROP 0.05% 16 GM NASAL SPRAY NS SCH ×2 (10:03→22:35)
[2022-02-18] MEDS: PRENATAL VITAMINS W/ FOLIC ACID TABLET (FP) PO SCH (10:03)
[2022-02-18] MEDS: LORATADINE 10 MG TABLET PO SCH (10:03)
[2022-02-18] MEDS: IBUPROFEN 400 MG TABLET (FP) PO PRN (10:04)
[2022-02-18] MEDS: MELATONIN 5 MG TABLETS PO SCH (22:35)
[2022-02-18] MEDS: THIAMINE HCL 100 MG TABLET (FP) PO SCH (22:35)
[2022-02-19] MEDS: LORATADINE 10 MG TABLET PO SCH (09:51)
[2022-02-19] MEDS: PRENATAL VITAMINS W/ FOLIC ACID TABLET (FP) PO SCH (09:51)
[2022-02-19] MEDS: FLUTICASONE PROP 0.05% 16 GM NASAL SPRAY NS SCH ×2 (09:52→21:13)
[2022-02-19] MEDS: IBUPROFEN 400 MG TABLET (FP) PO PRN (21:12)
[2022-02-19] MEDS: MELATONIN 5 MG TABLETS PO SCH (21:13)
[2022-02-19] MEDS: THIAMINE HCL 100 MG TABLET (FP) PO SCH (21:13)
[2022-02-20] MEDS: LORATADINE 10 MG TABLET PO SCH (11:01)
[2022-02-20] MEDS: PRENATAL VITAMINS W/ FOLIC ACID TABLET (FP) PO SCH (11:01)
[2022-02-20] MEDS: FLUTICASONE PROP 0.05% 16 GM NASAL SPRAY NS SCH ×2 (11:02→21:19)
[2022-02-20] MEDS: MELATONIN 5 MG TABLETS PO SCH (21:19)
[2022-02-20] MEDS: THIAMINE HCL 100 MG TABLET (FP) PO SCH (21:19)
[2022-02-21 07:05] VITALS: BP 142/93; PULSE 67; TEMP 97.5
[2022-02-21] MEDS: FLUTICASONE PROP 0.05% 16 GM NASAL SPRAY NS SCH (10:34)
[2022-02-21] MEDS: LORATADINE 10 MG TABLET PO SCH (10:34)
[2022-02-21] MEDS: PRENATAL VITAMINS W/ FOLIC ACID TABLET (FP) PO SCH (10:35)
== END 2022-02-21 10:36 | disposition home or self-care (01) | DRG 772 ==
LOC: YASAS 08:12 → Y3W 11:33
PROVIDERS: ADMIT Allergy & Immunology; ATTEND Psychiatry & Neurology Pain Medicine
PROC: HZ42ZZZ Group Counseling for Substance Abuse Treatment, Cognitive-Behavioral (ICD-10-PCS; principal; 2022-02-07)
DX: F10.230 Alcohol dependence with withdrawal, uncomplicated (principal); F13.230 Sedative, hypnotic or anxiolytic dependence with withdrawal, uncomplicated; F14.10 Cocaine abuse, uncomplicated; F12.10 Cannabis abuse, uncomplicated; J06.9 Acute upper respiratory infection, unspecified; Z98.890 Other specified postprocedural states
CPT/HCPCS: 36415; 80053; 82962; 85027; 86780; 86803; 87811; C9803-CS; U0003; U0005

== ENCOUNTER 2022-05-30 12:06 | Inpatient (IN) | payer OTHER ==
[2022-05-30 14:15] VITALS: BMI 30.1
[2022-05-31] MEDS ORDERED: guaiFENesin 200 MG/10 ML 10 ML UNIT-DOSE CUPS PO PRN (01:37)
[2022-05-31] MEDS ORDERED: MAGNESIUM CITRATE 300 ML BOTTLE PO PRN (01:37)
[2022-05-31] MEDS ORDERED: LOPERAMIDE HCL 2 MG CAPSULE PO PRN (01:37)
[2022-05-31] MEDS ORDERED: MAG HYDROX/AL HYDROX/SIMETH 30 ML UNIT-DOSE CUP PO PRN (01:37)
[2022-05-31] MEDS ORDERED: hydrOXYzine PAMOATE 25 MG CAPSULE (FP) PO PRN (01:37)
[2022-05-31] MEDS ORDERED: MAGNESIUM HYDROX 2400MG/30ML ORAL SUSPENSION 30 ML CUP PO PRN (01:37)
[2022-05-31] MEDS ORDERED: P-EPHED 60MG/TRIPROLIDI 2.5MG TABLET PO PRN (01:37)
[2022-05-31 09:45] LABS: HEMATOCRIT 36.8 % (35.4-49); HEMOGLOBIN 12.5 GM/dL (11.7-16.9); MCH 29.6 pg (25.7-33.7); MCHC 33.9 g/dl (32.0-35.9); MEAN CELL VOLUME 87.2 fl (80-96); MEAN PLT VOLUME 8.4 fl (7.5-11.1); PLATELET COUNT 201 10^3/uL (134-434); RBC 4.22 M/mm3 (4.00-5.60); RDW 15.8 % (11.9-15.9); WHITE BLOOD COUNT 3.6 K/mm3 (4.0-10.0)
[2022-05-31 09:47] LABS: CALCIUM 8.8 mg/dL (8.5-10.1)
[2022-05-31 09:49] LABS: BLOOD UREA NITROGEN 16.6 mg/dL (7-18)
[2022-05-31 09:53] LABS: BILIRUBIN,TOTAL 0.4 mg/dL (0.2-1); TOT PROT 7.7 g/dl (6.4-8.2)
[2022-05-31] MEDS: PRENATAL VITAMINS W/ FOLIC ACID TABLET (FP) PO SCH (10:05)
[2022-05-31] MEDS: ACETAMINOPHEN 325 MG TABLET (FP) PO PRN (10:05)
[2022-05-31 10:38] LABS: SYPHILIS W/ RPR CONF NON-REACTIVE (NONREACTIVE)
[2022-05-31 17:58] LABS: PH,URINE 6.5 (5.0-8.0); URINE APPEARANCE CLEAR; URINE BILIRUBIN NEGATIVE (NEGATIVE); URINE COLOR YELLOW; URINE GLUCOSE (UA) NEGATIVE (NEGATIVE); URINE KETONE NEGATIVE (NEGATIVE); URINE LEUK ESTERASE NEGATIVE (NEGATIVE); URINE NITRITE NEGATIVE (NEGATIVE); URINE PROTEIN NEGATIVE (NEGATIVE); URINE UROBILINOGEN 0.2 mg/dL (0.2-1.0)
[2022-05-31] MEDS: MELATONIN 5 MG TABLETS PO SCH (21:57)
[2022-05-31] MEDS: THIAMINE HCL 100 MG TABLET (FP) PO SCH (21:57)
[2022-06-01] MEDS: PRENATAL VITAMINS W/ FOLIC ACID TABLET (FP) PO SCH (09:44)
[2022-06-01] MEDS: IBUPROFEN 400 MG TABLET (FP) PO PRN (09:45)
[2022-06-01] MEDS: THIAMINE HCL 100 MG TABLET (FP) PO SCH (21:41)
[2022-06-01] MEDS: MELATONIN 5 MG TABLETS PO SCH (21:41)
[2022-06-02] MEDS: PRENATAL VITAMINS W/ FOLIC ACID TABLET (FP) PO SCH (10:03)
[2022-06-02] MEDS: IBUPROFEN 400 MG TABLET (FP) PO PRN (10:04)
[2022-06-02] MEDS: CLOTRIMAZOLE/BETAMET DIPROP TOPICAL CREAM 45 GM TUBE TP SCH ×2 (10:41→21:29)
[2022-06-02] MEDS: ARTIFICIAL TEARS (POLYVINYL ALCOHOL) OPTH DROPS OU PRN (10:42)
[2022-06-02] MEDS: ACETAMINOPHEN 325 MG TABLET (FP) PO PRN (19:12)
[2022-06-02] MEDS: THIAMINE HCL 100 MG TABLET (FP) PO SCH (21:28)
[2022-06-02] MEDS: MELATONIN 5 MG TABLETS PO SCH (21:28)
[2022-06-03] MEDS: ARTIFICIAL TEARS (POLYVINYL ALCOHOL) OPTH DROPS OU PRN (06:36)
[2022-06-03] MEDS: IBUPROFEN 400 MG TABLET (FP) PO PRN (09:59)
[2022-06-03] MEDS: PRENATAL VITAMINS W/ FOLIC ACID TABLET (FP) PO SCH (10:00)
[2022-06-03] MEDS: CLOTRIMAZOLE/BETAMET DIPROP TOPICAL CREAM 45 GM TUBE TP SCH ×2 (10:00→21:54)
[2022-06-03] MEDS: MELATONIN 5 MG TABLETS PO SCH (21:53)
[2022-06-03] MEDS: THIAMINE HCL 100 MG TABLET (FP) PO SCH (21:54)
[2022-06-04] MEDS: CLOTRIMAZOLE/BETAMET DIPROP TOPICAL CREAM 45 GM TUBE TP SCH ×2 (09:49→21:28)
[2022-06-04] MEDS: PRENATAL VITAMINS W/ FOLIC ACID TABLET (FP) PO SCH (09:49)
[2022-06-04] MEDS: IBUPROFEN 400 MG TABLET (FP) PO PRN (09:50)
[2022-06-04] MEDS: ARTIFICIAL TEARS (POLYVINYL ALCOHOL) OPTH DROPS OU PRN (09:51)
[2022-06-04] MEDS: MELATONIN 5 MG TABLETS PO SCH (21:28)
[2022-06-04] MEDS: THIAMINE HCL 100 MG TABLET (FP) PO SCH (21:28)
[2022-06-05] MEDS: IBUPROFEN 400 MG TABLET (FP) PO PRN (10:02)
[2022-06-05] MEDS: CLOTRIMAZOLE/BETAMET DIPROP TOPICAL CREAM 45 GM TUBE TP SCH ×2 (10:02→23:07)
[2022-06-05] MEDS: PRENATAL VITAMINS W/ FOLIC ACID TABLET (FP) PO SCH (10:02)
[2022-06-05] MEDS: ARTIFICIAL TEARS (POLYVINYL ALCOHOL) OPTH DROPS OU PRN (10:02)
[2022-06-05] MEDS: MELATONIN 5 MG TABLETS PO SCH (23:07)
[2022-06-05] MEDS: THIAMINE HCL 100 MG TABLET (FP) PO SCH (23:08)
[2022-06-06] MEDS: IBUPROFEN 400 MG TABLET (FP) PO PRN (06:16)
[2022-06-06] MEDS: CLOTRIMAZOLE/BETAMET DIPROP TOPICAL CREAM 45 GM TUBE TP SCH ×2 (09:55→21:53)
[2022-06-06] MEDS: ACETAMINOPHEN 325 MG TABLET (FP) PO PRN (09:56)
[2022-06-06] MEDS: PRENATAL VITAMINS W/ FOLIC ACID TABLET (FP) PO SCH (09:56)
[2022-06-06] MEDS: ARTIFICIAL TEARS (POLYVINYL ALCOHOL) OPTH DROPS OU PRN (09:56)
[2022-06-06] MEDS: MELATONIN 5 MG TABLETS PO SCH (21:53)
[2022-06-06] MEDS: THIAMINE HCL 100 MG TABLET (FP) PO SCH (21:53)
[2022-06-07] MEDS: ACETAMINOPHEN 325 MG TABLET (FP) PO PRN (06:48)
[2022-06-07] MEDS: CLOTRIMAZOLE/BETAMET DIPROP TOPICAL CREAM 45 GM TUBE TP SCH ×2 (09:53→21:12)
[2022-06-07] MEDS: PRENATAL VITAMINS W/ FOLIC ACID TABLET (FP) PO SCH (09:53)
[2022-06-07] MEDS: ARTIFICIAL TEARS (POLYVINYL ALCOHOL) OPTH DROPS OU PRN (09:53)
[2022-06-07] MEDS: IBUPROFEN 400 MG TABLET (FP) PO PRN (13:08)
[2022-06-07] MEDS: MELATONIN 5 MG TABLETS PO SCH (21:12)
[2022-06-07] MEDS: THIAMINE HCL 100 MG TABLET (FP) PO SCH (21:12)
[2022-06-08] MEDS: ACETAMINOPHEN 325 MG TABLET (FP) PO PRN (06:45)
[2022-06-08] MEDS: ARTIFICIAL TEARS (POLYVINYL ALCOHOL) OPTH DROPS OU PRN (10:05)
[2022-06-08] MEDS: CLOTRIMAZOLE/BETAMET DIPROP TOPICAL CREAM 45 GM TUBE TP SCH ×2 (10:05→21:17)
[2022-06-08] MEDS: PRENATAL VITAMINS W/ FOLIC ACID TABLET (FP) PO SCH (10:05)
[2022-06-08] MEDS: MELATONIN 5 MG TABLETS PO SCH (21:17)
[2022-06-08] MEDS: THIAMINE HCL 100 MG TABLET (FP) PO SCH (21:17)
[2022-06-09] MEDS: CLOTRIMAZOLE/BETAMET DIPROP TOPICAL CREAM 45 GM TUBE TP SCH ×2 (09:53→21:24)
[2022-06-09] MEDS: PRENATAL VITAMINS W/ FOLIC ACID TABLET (FP) PO SCH (09:53)
[2022-06-09] MEDS: IBUPROFEN 400 MG TABLET (FP) PO PRN (09:54)
[2022-06-09] MEDS: MELATONIN 5 MG TABLETS PO SCH (21:23)
[2022-06-09] MEDS: THIAMINE HCL 100 MG TABLET (FP) PO SCH (21:23)
[2022-06-10] MEDS: PRENATAL VITAMINS W/ FOLIC ACID TABLET (FP) PO SCH (09:58)
[2022-06-10] MEDS: IBUPROFEN 400 MG TABLET (FP) PO PRN (09:58)
[2022-06-10] MEDS: CLOTRIMAZOLE/BETAMET DIPROP TOPICAL CREAM 45 GM TUBE TP SCH ×2 (10:00→21:50)
[2022-06-10] MEDS: ARTIFICIAL TEARS (POLYVINYL ALCOHOL) OPTH DROPS OU PRN (10:00)
[2022-06-10] MEDS: THIAMINE HCL 100 MG TABLET (FP) PO SCH (21:50)
[2022-06-10] MEDS: MELATONIN 5 MG TABLETS PO SCH (21:50)
[2022-06-11] MEDS: PRENATAL VITAMINS W/ FOLIC ACID TABLET (FP) PO SCH (10:09)
[2022-06-11] MEDS: IBUPROFEN 400 MG TABLET (FP) PO PRN (10:09)
[2022-06-11] MEDS: CLOTRIMAZOLE/BETAMET DIPROP TOPICAL CREAM 45 GM TUBE TP SCH ×2 (10:11→21:40)
[2022-06-11] MEDS: ARTIFICIAL TEARS (POLYVINYL ALCOHOL) OPTH DROPS OU PRN (10:11)
[2022-06-11] MEDS: MELATONIN 5 MG TABLETS PO SCH (21:40)
[2022-06-11] MEDS: THIAMINE HCL 100 MG TABLET (FP) PO SCH (21:40)
[2022-06-12] MEDS: PRENATAL VITAMINS W/ FOLIC ACID TABLET (FP) PO SCH (09:58)
[2022-06-12] MEDS: CLOTRIMAZOLE/BETAMET DIPROP TOPICAL CREAM 45 GM TUBE TP SCH ×2 (09:58→21:33)
[2022-06-12] MEDS: IBUPROFEN 400 MG TABLET (FP) PO PRN (09:58)
[2022-06-12] MEDS: THIAMINE HCL 100 MG TABLET (FP) PO SCH (21:33)
[2022-06-12] MEDS: MELATONIN 5 MG TABLETS PO SCH (21:33)
[2022-06-13 06:46] VITALS: BP 124/81; PULSE 87; RESP 16; TEMP 96.8
[2022-06-13] MEDS: CLOTRIMAZOLE/BETAMET DIPROP TOPICAL CREAM 45 GM TUBE TP SCH (09:15)
[2022-06-13] MEDS: PRENATAL VITAMINS W/ FOLIC ACID TABLET (FP) PO SCH (09:15)
== END 2022-06-13 09:22 | disposition home or self-care (01) | DRG 772 ==
LOC: YASAS 12:06 → Y3E 20:24
PROVIDERS: ADMIT Allergy & Immunology; ATTEND Psychiatry & Neurology Pain Medicine
PROC: HZ42ZZZ Group Counseling for Substance Abuse Treatment, Cognitive-Behavioral (ICD-10-PCS; principal; 2022-05-30)
DX: F10.20 Alcohol dependence, uncomplicated (principal); F14.20 Cocaine dependence, uncomplicated; F12.20 Cannabis dependence, uncomplicated; I10 Essential (primary) hypertension; J45.990 Exercise induced bronchospasm; M54.89 Other dorsalgia; H04.123 Dry eye syndrome of bilateral lacrimal glands
CPT/HCPCS: 36415; 80053; 81003; 85027; 86780; 86803; C9803-CS; U0003; U0005

== ENCOUNTER 2022-10-24 12:29 | Inpatient (IN) | payer OTHER ==
[2022-10-24 13:20] VITALS: BMI 32.0
[2022-10-24] MEDS ORDERED: MAG HYDROX/AL HYDROX/SIMETH 30 ML UNIT-DOSE CUP PO PRN (14:06)
[2022-10-24] MEDS ORDERED: NALOXONE HCL (KLOXXADO) 8 MG SPRAY NS PRN (14:06)
[2022-10-24] MEDS ORDERED: LORazepam 1 MG TABLET PO PRN (14:06)
[2022-10-24] MEDS ORDERED: POLYETHYLENE GLYCOL (HEALTHYLAX) 3350 17 GM PACKET PO PRN (14:06)
[2022-10-24] MEDS ORDERED: ACETAMINOPHEN 325 MG TABLET (FP) PO PRN (14:06)
[2022-10-24] MEDS ORDERED: IBUPROFEN 600 MG TABLET (FP) PO PRN (14:06)
[2022-10-24] MEDS ORDERED: DICYCLOMINE HCL 10 MG CAPSULE PO PRN (14:06)
[2022-10-24] MEDS ORDERED: IBUPROFEN 400 MG TABLET (FP) PO PRN (14:06)
[2022-10-24] MEDS ORDERED: ONDANSETRON *ODT* 4 MG TABLET SL PRN (14:06)
[2022-10-24] MEDS ORDERED: BENZOCAINE/MENTHOL (CHLORASEPTIC ) LOZENGE MM PRN (14:06)
[2022-10-24] MEDS ORDERED: MAGNESIUM HYDROX 2400MG/30ML ORAL SUSPENSION 30 ML CUP PO PRN (14:06)
[2022-10-24] MEDS ORDERED: LOPERAMIDE HCL 2 MG CAPSULE PO PRN (14:06)
[2022-10-24] MEDS ORDERED: BISMUTH SUBSALICYLATE 262 MG/15 ML BTL PO PRN (14:06)
[2022-10-24] MEDS ORDERED: DIPHENOXYLATE 2.5/ATROPINE.025 1 COMBO TABLET PO PRN (14:12)
[2022-10-24] MEDS: PRENATAL VITAMINS W/ FOLIC ACID TABLET (FP) PO SCH (15:20)
[2022-10-24] MEDS: ACETAMINOPHEN 325 MG TABLET (FP) PO PRN (15:21)
[2022-10-24] MEDS: LORazepam 2 MG TABLET PO SCH ×2 (17:14→22:01)
[2022-10-24] MEDS: hydrOXYzine PAMOATE 25 MG CAPSULE (FP) PO PRN (17:29)
[2022-10-24] MEDS: THIAMINE HCL 100 MG TABLET (FP) PO SCH (22:00)
[2022-10-24] MEDS: MELATONIN 5 MG TABLETS PO SCH (22:00)
[2022-10-24] MEDS: TOLNAFTATE 1% CREAM 15 GM TUBE TP SCH (22:01)
[2022-10-25] MEDS: LORazepam 2 MG TABLET PO SCH ×4 (06:03→22:29)
[2022-10-25] MEDS: TOLNAFTATE 1% CREAM 15 GM TUBE TP SCH ×2 (10:19→22:29)
[2022-10-25] MEDS: PRENATAL VITAMINS W/ FOLIC ACID TABLET (FP) PO SCH (10:19)
[2022-10-25] MEDS: hydrOXYzine PAMOATE 25 MG CAPSULE (FP) PO PRN (17:50)
[2022-10-25] MEDS: ACETAMINOPHEN 325 MG TABLET (FP) PO PRN (17:52)
[2022-10-25] MEDS: THIAMINE HCL 100 MG TABLET (FP) PO SCH (22:29)
[2022-10-25] MEDS: MELATONIN 5 MG TABLETS PO SCH (22:29)
[2022-10-25] MEDS: METHOCARBAMOL 500 MG TABLET PO PRN (22:31)
[2022-10-26] MEDS: LORazepam 1 MG TABLET PO SCH ×4 (06:05→22:02)
[2022-10-26] MEDS: METHOCARBAMOL 500 MG TABLET PO PRN ×2 (06:08→22:02)
[2022-10-26] MEDS: hydrOXYzine PAMOATE 25 MG CAPSULE (FP) PO PRN ×2 (06:08→22:02)
[2022-10-26] MEDS: PRENATAL VITAMINS W/ FOLIC ACID TABLET (FP) PO SCH (10:42)
[2022-10-26] MEDS: TOLNAFTATE 1% CREAM 15 GM TUBE TP SCH ×2 (10:43→22:02)
[2022-10-26] MEDS ORDERED: CALAMINE 8% TOPICAL LOTION 177 ML BOTTLE TP PRN (15:37)
[2022-10-26] MEDS ORDERED: amLODIPine BESYLATE 5 MG TABLET (FP) PO ONE ×2 (15:45→17:00)
[2022-10-26] MEDS: ARTIFICIAL TEARS (POLYVINYL ALCOHOL) OPTH DROPS OU PRN (21:26)
[2022-10-26] MEDS: MELATONIN 5 MG TABLETS PO SCH (22:01)
[2022-10-26] MEDS: THIAMINE HCL 100 MG TABLET (FP) PO SCH (22:02)
[2022-10-27] MEDS ORDERED: LORazepam 0.5 MG TABLET PO PRN
[2022-10-27] MEDS: LORazepam 0.5 MG TABLET PO SCH ×4 (05:51→22:18)
[2022-10-27] MEDS: amLODIPine BESYLATE 2.5 MG TABLET (FP) PO SCH (10:10)
[2022-10-27] MEDS: PRENATAL VITAMINS W/ FOLIC ACID TABLET (FP) PO SCH (10:12)
[2022-10-27] MEDS: TOLNAFTATE 1% CREAM 15 GM TUBE TP SCH ×2 (10:12→22:20)
[2022-10-27] MEDS: ARTIFICIAL TEARS (POLYVINYL ALCOHOL) OPTH DROPS OU PRN (10:14)
[2022-10-27 12:27] LABS: HEMATOCRIT 38.3 % (35.4-49); HEMOGLOBIN 13.1 GM/dL (11.7-16.9); MCH 30.1 pg (25.7-33.7); MCHC 34.1 g/dl (32.0-35.9); MEAN CELL VOLUME 88.3 fl (80-96); MEAN PLT VOLUME 8.4 fl (7.5-11.1); PLATELET COUNT 225 10^3/uL (134-434); RBC 4.34 M/mm3 (4.00-5.60); RDW 14.1 % (11.9-15.9); WHITE BLOOD COUNT 3.9 K/mm3 (4.0-10.0)
[2022-10-27 12:54] LABS: ALBUMIN 3.9 g/dl (3.4-5.0); BLOOD UREA NITROGEN 14.1 mg/dL (7-18)
[2022-10-27 12:55] LABS: BILIRUBIN,TOTAL 0.5 mg/dL (0.2-1); TOT PROT 7.7 g/dl (6.4-8.2)
[2022-10-27] MEDS: THIAMINE HCL 100 MG TABLET (FP) PO SCH (22:17)
[2022-10-27] MEDS: MELATONIN 5 MG TABLETS PO SCH (22:18)
[2022-10-27] MEDS: hydrOXYzine PAMOATE 25 MG CAPSULE (FP) PO PRN (23:08)
[2022-10-28] MEDS ORDERED: LORazepam 0.5 MG TABLET PO ONE ×2 (05:00→06:24)
[2022-10-28] MEDS: PRENATAL VITAMINS W/ FOLIC ACID TABLET (FP) PO SCH (08:59)
[2022-10-28] MEDS: TOLNAFTATE 1% CREAM 15 GM TUBE TP SCH (08:59)
[2022-10-28] MEDS: amLODIPine BESYLATE 2.5 MG TABLET (FP) PO SCH (08:59)
[2022-10-28 09:08] VITALS: BP 143/85; PULSE 80; RESP 20; TEMP 98.1
== END 2022-10-28 11:46 | disposition home or self-care (01) | DRG 775 ==
LOC: YASAS 12:29 → Y3N 14:43
PROVIDERS: ADMIT Allergy & Immunology; ATTEND Surgery
PROC: HZ2ZZZZ Detoxification Services for Substance Abuse Treatment (ICD-10-PCS; principal; 2022-10-24)
DX: F10.230 Alcohol dependence with withdrawal, uncomplicated (principal); F12.20 Cannabis dependence, uncomplicated; E72.20 Disorder of urea cycle metabolism, unspecified; I10 Essential (primary) hypertension; L85.3 Xerosis cutis; R19.7 Diarrhea, unspecified; Z86.2 Personal history of diseases of the blood and blood-forming organs and certain disorders involving the immune mechanism
CPT/HCPCS: 36415; 80053; 82140; 85027; 86780; C9803-CS; U0003; U0005